=== PATIENT | male | born 1955 | race Caucasian/White ===

== ENCOUNTER 2019-05-08 03:54 | Inpatient (IN) | payer BC ==
[2019-05-08] MEDS ORDERED: HYDROmorphone 0.5 MG/0.5 ML SYRINGE IVP STA (04:58)
--- NOTE | 2019-05-08 05:04 | ED ---
General Adult HPI - General Source: patient Mode of arrival: ambulatory Limitations: no limitations <Dima Villeda - Last Filed: 05/10/19 20:52> <Tierra Gil - Last Filed: 05/14/19 13:52> - General Chief complaint: Abdominal Pain Stated complaint: Abd Pain/Shoulder Pain Time Seen by Provider: 05/08/19 04:27 - History of Present Illness Initial comments: Patient is a 64-year-old male presenting to the emergency department with a chief complaint of abdominal pain. Patient reports symptoms initially started with sore throat and a cough 2 days ago. Patient reports yesterday he developed sudden onset of generalized abdominal pain. Patient reports the pain is a 7, sharp and comes in waves. Patient does report abdominal bloating. Patient reports the pain is not related to oral intake. Patient denies any nausea or vomiting or diarrhea. Patient denies any urinary or bowel symptoms. Patient denies any fevers or chills. (Dima Villeda) - Related Data Home Medications Medication Instructions Recorded Confirmed Albuterol Inhaler [Ventolin Hfa 2 puff INHALATION RT-Q6H PRN 07/16/16 05/08/19 Inhaler] Benazepril HCl 20 mg PO DAILY 07/16/16 05/08/19 Loratadine [Claritin] 10 mg PO DAILY 07/16/16 05/08/19 Ascorbic Acid [Vitamin C] 500 mg PO DAILY 05/08/19 05/08/19 Cholecalciferol [Vitamin D3 (25 1,000 unit PO DAILY 05/08/19 05/08/19 Mcg = 1000 Iu)] Ferrous Sulfate [Feosol] 325 mg PO DAILY 05/08/19 05/08/19 Glucosamine Sulfate 500 mg PO DAILY 05/08/19 05/08/19 Multivitamins, Thera [Multivitamin 1 tab PO DAILY 05/08/19 05/08/19 (formulary)] Naproxen Sodium [Aleve] 220 mg PO DAILY PRN 05/08/19 05/08/19 Omeprazole 20 mg PO DAILY 05/08/19 05/08/19 Potassium 99 mg PO DAILY 05/08/19 05/08/19 Simvastatin [Zocor] 10 mg PO DAILY 05/08/19 05/08/19 Turmeric Root Extract [Turmeric] 500 mg PO DAILY 05/08/19 05/08/19 Previous Rx's Medication Instructions Recorded Ipratropium-Albuterol Nebulize 3 ml INHALATION RT-QID #120 07/25/16 [Duoneb 0.5 mg-3 mg/3 ml Soln] ampul.neb Levofloxacin [Levaquin] 500 mg PO DAILY #7 tab 05/13/19 traMADol HCl [Ultram] 50 mg PO Q4HR PRN 3 Days #18 tab 05/13/19 Allergies Allergy/AdvReac Type Severity Reaction Status Date / Time acetaminophen [From [place]] Allergy Rash/Hives Verified 05/08/19 07:57 Cephalosporins Allergy Rash/Hives Verified 05/08/19 07:57 hydrocodone [From [place]] Allergy Rash/Hives Verified 05/08/19 07:57 piperacillin [From Zosyn] Allergy Rash/Hives Verified 05/08/19 07:57 tazobactam [From Zosyn] Allergy Rash/Hives Verified 05/08/19 07:57 fluticasone AdvReac Wheezing Verified 05/08/19 07:57 [From Advair Diskus] salmeterol AdvReac Wheezing Verified 05/08/19 07:57 [From Advair Diskus] Review of Systems ROS Other: All systems not noted in ROS Statement are negative. <Dima Villeda - Last Filed: 05/10/19 20:52> ROS Other: All systems not noted in ROS Statement are negative. <Tierra Gil - Last Filed: 05/14/19 13:52> ROS Statement: Those systems with pertinent positive or pertinent negative responses have been documented in the HPI. Past Medical History Past Medical History: COPD, Hyperlipidemia, Hypertension History of Any Multi-Drug Resistant Organisms: None Reported Past Surgical History: No Surgical Hx Reported Additional Past Surgical History / Comment(s): orthoscopic surgery of right s [place] Past Anesthesia/Blood Transfusion Reactions: No Reported Reaction Past Psychological History: No Psychological Hx Reported Smoking Status: Former smoker Past Alcohol Use History: None Reported Past Drug Use History: None Reported - Past Family History Father History Unknown: Yes <Dima Villeda - Last Filed: 05/10/19 20:52> General Exam Limitations: no limitations General appearance: alert, in no apparent distress Head exam: Present: atraumatic, normocephalic, normal inspection Eye exam: Present: normal appearance, PERRL, EOMI Pupils: Present: normal accommodation ENT exam: Present: normal exam, normal oropharynx, mucous membranes moist, TM's normal bilaterally, normal external ear exam Neck exam: Present: normal inspection, full ROM Respiratory exam: Present: normal lung sounds bilaterally Cardiovascular Exam: Present: regular rate, normal rhythm, normal heart sounds GI/Abdominal exam: Present: soft, tenderness (Generalized abdominal tenderness. Positive Her, negative obturator sign, negative psoas, negative rebound tenderness. Positive bony point tenderness.), guarding (General), normal bowel sounds. Absent: rebound, mass, pulsatile mass, hernia Extremities exam: Present: normal inspection, full ROM, normal capillary refill Back exam: Present: normal inspection, full ROM Neurological exam: Present: alert, oriented X3 Psychiatric exam: Present: normal affect, normal mood Skin exam: Present: warm, intact, normal color <Dima Villeda - Last Filed: 05/10/19 20:52> Course Vital Signs 05/08/19 05/08/19 05/08/19 04:12 05:07 05:57 Temperature 97.5 F L 98.4 F Pulse Rate 83 99 98 Respiratory 18 18 18 Rate Blood Pressure 124/77 122/75 131/78 O2 Sat by Pulse 98 99 98 Oximetry 05/08/19 05/08/19 08:17 08:26 Temperature Pulse Rate 94 94 Respiratory Rate Blood Pressure O2 Sat by Pulse Oximetry Medical Decision Making - Lab Data Result diagrams: 05/10/19 06:47 05/10/19 06:47 <Dima Villeda - Last Filed: 05/10/19 20:52> - Lab Data Result diagrams: 05/12/19 08:37 05/12/19 08:37 <Tierra Gil - Last Filed: 05/14/19 13:52> - Medical Decision Making Patient is a 64-year-old male presenting to emergency Department with a chief c omplaint of abdominal pain. Patient had initial developed URI type symptoms over the last 2-3 days and yesterday developed abdominal pain. Patient reports the pain is not related to food intake. Patient reports he feels bloated. Patient has a history of acute abdomen followed by an exploratory laboratory which was unremarkable. Physical examination patient does have abdominal guarding. KUB is indicative of frequent urinary the abdomen. Case was discussed with the radiologist.case discussed with Dr. Gil. Admitting physician is Dr. Anguiano. CT abdomen and pelvis with contrast from multiple she points was advised according to him. Patient was given Zosyn. Patient will be admitted for further surgical evaluation. (Dima Villeda) I was available for consultation in the emergency department. The history and physical exam were done by the midlevel provider. I was consulted for this patients care. After the abd x-ray demonstrated free air, I called and discussed the case with Dr. Anguiano. He request an abd CT with oral, rectal and IV contrast. This is performed. The results are discussed with the patient and Dr. Anguiano. The patient is NPO. He was covered with antibiotics. He was then taken to the OR in stable condition for exploratory lap. (Tierra Gil) - Lab Data Lab Results 05/08/19 05/08/19 05/08/19 Range/Units 05:16 05:16 05:16 WBC 9.6 (3.8-10.6) k/uL RBC 4.79 (4.30-5.90) m/uL Hgb 14.9 (13.0-17.5) gm/dL Hct 45.1 (39.0-53.0) % MCV 94.1 (80.0-100.0) fL MCH 31.2 (25.0-35.0) pg MCHC 33.1 (31.0-37.0) g/dL RDW 13.5 (11.5-15.5) % Plt Count 117 L (150-450) k/uL Neutrophils % 91 % Lymphocytes % 2 % Monocytes % 4 % Eosinophils % 1 % Basophils % 1 % Neutrophils # 8.8 H (1.3-7.7) k/uL Lymphocytes # 0.2 L (1.0-4.8) k/uL Monocytes # 0.4 (0-1.0) k/uL Eosinophils # 0.1 (0-0.7) k/uL Basophils # 0.1 (0-0.2) k/uL Sodium 140 (137-145) mmol/L Potassium 4.8 (3.5-5.1) mmol/L Chloride 107 (98-107) mmol/L Carbon Dioxide 25 (22-30) mmol/L Anion Gap 8 mmol/L BUN 33 H (9-20) mg/dL Creatinine 1.01 (0.66-1.25) mg/dL Est GFR (CKD-EPI)AfAm >90 (>60 ml/min/1.73 sqM) Est GFR (CKD-EPI)NonAf 80 (>60 ml/min/1.73 sqM) Glucose 117 H (74-99) mg/dL Plasma Lactic Acid [place] (0.7-2.0) mmol/L Calcium 9.1 (8.4-10.2) mg/dL Total Bilirubin 0.6 (0.2-1.3) mg/dL AST 29 (17-59) U/L ALT 24 (21-72) U/L Alkaline Phosphatase 51 (38-126) U/L Total Protein 6.6 (6.3-8.2) g/dL Albumin 4.0 (3.5-5.0) g/dL Amylase 57 (30-110) U/L Lipase 67 (23-300) U/L Urine Color Yellow Urine Appearance Clear (Clear) Urine pH 6.0 (5.0-8.0) Ur Specific [place] 1.037 H (1.001-1.035) Urine Protein 1+ H (Negative) Urine Glucose (UA) Negative (Negative) Urine Ketones Trace H (Negative) Urine Blood Negative (Negative) Urine Nitrite Negative (Negative) Urine Bilirubin Negative (Negative) Urine Urobilinogen 2.0 (<2.0) mg/dL Ur Leukocyte Esterase Trace H (Negative) Urine RBC 3 (0-5) /hpf Urine WBC 10 H (0-5) /hpf Ur Squamous Epith Cells 1 (0-4) /hpf Urine Bacteria Rare H (None) /hpf Hyaline Casts 29 H (0-2) /lpf Urine Mucus Many H (None) /hpf 05/08/19 Range/Units 06:21 WBC (3.8-10.6) k/uL RBC (4.30-5.90) m/uL Hgb (13.0-17.5) gm/dL Hct (39.0-53.0) % MCV (80.0-100.0) fL MCH (25.0-35.0) pg MCHC (31.0-37.0) g/dL RDW (11.5-15.5) % Plt Count (150-450) k/uL Neutrophils % % Lymphocytes % % Monocytes % % Eosinophils % % Basophils % % Neutrophils # (1.3-7.7) k/uL Lymphocytes # (1.0-4.8) k/uL Monocytes # (0-1.0) k/uL Eosinophils # (0-0.7) k/uL Basophils # (0-0.2) k/uL Sodium (137-145) mmol/L Potassium (3.5-5.1) mmol/L Chloride (98-107) mmol/L Carbon Dioxide (22-30) mmol/L Anion Gap mmol/L BUN (9-20) mg/dL Creatinine (0.66-1.25) mg/dL Est GFR (CKD-EPI)AfAm (>60 ml/min/1.73 sqM) Est GFR (CKD-EPI)NonAf (>60 ml/min/1.73 sqM) Glucose (74-99) mg/dL Plasma Lactic Acid [place] 1.5 (0.7-2.0) mmol/L Calcium (8.4-10.2) mg/dL Total Bilirubin (0.2-1.3) mg/dL AST (17-59) U/L ALT (21-72) U/L Alkaline Phosphatase (38-126) U/L Total Protein (6.3-8.2) g/dL Albumin (3.5-5.0) g/dL Amylase (30-110) U/L Lipase (23-300) U/L Urine Color Urine Appearance (Clear) Urine pH (5.0-8.0) Ur Specific [place] (1.001-1.035) Urine Protein (Negative) Urine Glucose (UA) (Negative) Urine Ketones (Negative) Urine Blood (Negative) Urine Nitrite (Negative) Urine Bilirubin (Negative) Urine Urobilinogen (<2.0) mg/dL Ur Leukocyte Esterase (Negative) Urine RBC (0-5) /hpf Urine WBC (0-5) /hpf Ur Squamous Epith Cells (0-4) /hpf Urine Bacteria (None) /hpf Hyaline Casts (0-2) /lpf Urine Mucus (None) /hpf Disposition Is patient prescribed a controlled substance at d/c from ED?: No Time of Disposition: 20:55 <Dima Villeda - Last Filed: 05/10/19 20:52> <Tierra Gil - Last Filed: 05/14/19 13:52> Clinical Impression: Acute abdomen Disposition: ADMITTED IP TO THIS HOSP Condition: Stable
[2019-05-08 05:36] LABS: Basophils # (A) 0.1 k/uL (0-0.2); Basophils % (A) 1 %; Eosinophils # (A) 0.1 k/uL (0-0.7); Eosinophils % (A) 1 %; HCT 45.1 % (39.0-53.0); HGB 14.9 gm/dL (13.0-17.5); Lymphocytes # (A) 0.2 k/uL (1.0-4.8); Lymphocytes % (A) 2 %; MCH 31.2 pg (25.0-35.0); MCHC 33.1 g/dL (31.0-37.0); MCV 94.1 fL (80.0-100.0); Mean Platelet Volume 7.1; Monocytes # (A) 0.4 k/uL (0-1.0); Monocytes % (A) 4 %; Neutrophils # (A) 8.8 k/uL (1.3-7.7); Neutrophils % (A) 91 %; Platelet Count 117 k/uL (150-450); RBC 4.79 m/uL (4.30-5.90); RDW 13.5 % (11.5-15.5); WBC 9.6 k/uL (3.8-10.6)
--- NOTE | 2019-05-08 05:40 | XR ---
EXAM: XR Abdomen, 2 Views CLINICAL HISTORY: Abdominal pain. TECHNIQUE: Frontal view of the abdomen/pelvis with upright view of the abdomen. COMPARISON: None. FINDINGS: Intraperitoneal space: No free air. Gastrointestinal tract: Free intra-abdominal air is noted. Air-filled prominent loops of bowel are noted centrally in the abdomen extending to the left upper quadrant. Bones/joints: Unremarkable. Other findings: Etiology such as of volvulus or obstruction should be considered. IMPRESSION: Free abdominal air raising concern for ruptured viscus. Prominent loops of bowel centrally in the abdomen extending to the left upper quadrant. The possibility of obstruction or volvulus cannot be excluded. CT imaging of the abdomen and pelvis is highly advised to follow. <MYCVCSECTION> Critical Value Communications 05/08/19 05:42 Call Doctor Regarding Above results, called Dima WALLACE on 05/08 05:42 (-04:00)
[2019-05-08] MEDS ORDERED: metroNIDAZOLE-NS PMX 500 MG in SALINE 1 100ML.BAG IVPB STA (05:52)
[2019-05-08] MEDS ORDERED: LEVOFLOXACIN 750MG-D5W PMX 750 MG in DEXTROSE/WATER 1 150ML.BAG IVPB STA (05:52)
[2019-05-08] MEDS ORDERED: IOPAMIDOL CONTRAST (ORAL USE) VIAL PO PRN (05:53)
[2019-05-08] MEDS ORDERED: SODIUM CHLORIDE 0.9% 1,000 ML IV ONE (05:54)
[2019-05-08 05:55] LABS: ALT 24 U/L (21-72); AST 29 U/L (17-59); African American GFR (CKD) >90 (>60 ml/min/1.73 sqM); Alkaline Phosphatase 51 U/L (38-126); Amylase 57 U/L (30-110); Anion Gap 8 mmol/L; Blood Urea Nitrogen 33 mg/dL (9-20); Calcium 9.1 mg/dL (8.4-10.2); Carbon Dioxide 25 mmol/L (22-30); Chloride 107 mmol/L (98-107); Glucose 117 mg/dL (74-99); Potassium 4.8 mmol/L (3.5-5.1); Sodium 140 mmol/L (137-145); Total Bilirubin 0.6 mg/dL (0.2-1.3); Total Protein 6.6 g/dL (6.3-8.2)
[2019-05-08 06:01] LABS: Appearance,Urine Clear (Clear); Bacteria,Urine Rare /hpf; Bilirubin,Urine Negative (Negative); Blood,Urine Negative (Negative); Color,Urine Yellow; Glucose,Urine (UA) Negative (Negative); Hyaline Casts,Urine 29 /lpf (0-2); Ketones,Urine Trace (Negative); Leukocyte Esterase,Urine Trace (Negative); Mucus,Urine Many /hpf; Nitrite,Urine Negative (Negative); Protein,Urine 1+ (Negative); RBC,Urine 3 /hpf (0-5); Specific Gravity,Urine 1.037 (1.001-1.035); Squamous Epithelial Cell,Urine 1 /hpf (0-4); WBC,Urine 10 /hpf (0-5)
[2019-05-08] MEDS ORDERED: HYDROmorphone 1 MG/ML 1 ML SYRINGE IVP STA (06:23)
[2019-05-08] MEDS ORDERED: ALBUTEROL NEBULIZED 2.5 MG/3 ML INHALATION STA (08:03)
--- NOTE | 2019-05-08 08:17 | CT ---
EXAMINATION TYPE: CT abdomen pelvis w con DATE OF EXAM: 05/08/2019 REFERENCE: Previous study dated 07/16/2016. HISTORY: Free air in abdomen. HISTORY: Severe abdominal pain, free air in abdomen CT DLP: 511.8 mGy Automated exposure control for dose reduction was used. TECHNIQUE: Helical acquisition through the abdomen and pelvis was obtained following the oral ingesti on of with Oral Contrast and following intravenous administration of 100 mL of Isovue 300. The data w as reformatted in axial, coronal and sagittal projections. FINDINGS: Visualized portions of the lungs are clear. There is no pleural or pericardial fluid. The heart is not enlarged. Within the abdomen, there is evidence of pneumoperitoneum. There is mild dilatation of the duodenum a nd jejunum. The remainder the small bowel is normal in caliber. There is a questionable transition po int in the right lower quadrant seen best on image 42. The liver is normal in size. The gallbladder and spleen are normal. Both adrenal glands are normal. There is an 8 mm fat-containing lesion within the left kidney which is likely an angiomyolipoma. Ther e are parapelvic cysts present on the right. The pancreas is unremarkable. There is an infrarenal abdominal aortic aneurysm with eccentric thrombus which measures 4.1 cm on tod melissa's examination. Previously it measured 3.9 cm. There is no significant retroperitoneal, iliac or in guinal adenopathy. The bladder is unremarkable. There is a catheter within the rectum. There are scattered diverticula in the sigmoid region. I do no t see radiographic evidence of diverticulitis. The appendix is unremarkable. There is a small ventral hernia just below the umbilicus containing air. The mouth measures approxima tely 1.2 cm. No bony lesion is seen. IMPRESSION: 1. FREE INTRAPERITONEAL AIR. I DO NOT SEE A DEFINITE SITE OF PERFORATION. THERE IS DILATATION OF THE SMALL BOWEL TO THE LEVEL OF THE PROXIMAL JEJUNUM WITH A TRANSITION POINT PRESENT ON IMAGE 42. THERE I S NO ORAL 2. 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 3. ENLARGING INFRARENAL ABDOMINAL AORTIC ANEURYSM WITH GREATEST TRANSVERSE DIAMETER 4.1 CM TODAY. 4. MINIMAL DIVERTICULOSIS OF THE SIGMOID COLON. 5. TINY VENTRAL HERNIA CONTAINING ONLY WITH A MOUTH MEASURING 1.2 CM.
[2019-05-08] MEDS ORDERED: fentaNYL (PF) 50 MCG/ML 2 ML AMP IV PRN (08:59)
[2019-05-08] MEDS ORDERED: MIDAZOLAM 2 MG/2 ML VIAL IV PRN (08:59)
[2019-05-08] MEDS ORDERED: NALOXONE 0.4 MG/ML 1 ML VIAL IV PRN ×2 (09:05→10:50)
--- NOTE | 2019-05-08 09:08 | P.GSHP ---
History of Present Illness H&P Date: 05/08/19 Chief Complaint: Pneumoperitoneum Patient presents to the ER with pain that began around 7:00 last night. Became much more severe around 1 AM. Had an episode similar to this July 2016. X- rays when he arrived showed free air. Patient had similar episode last time. At that time the patient went for laparoscopy followed by laparotomy with no identifiable source for the pneumoperitoneum. Patient had upper GI, EGD as well following that. This time the patient's pain is midabdomen. CAT scan with oral IV and rectal contrast was utilized this morning. Case reviewed with radiology. There does appear to be some inflammatory changes with a transition point in the mid small bowel. This is thought to be the likely source of perforation. Stomach and colon appear fairly normal. Patient still having pain. Describes shortness of breath although chronically has breathing issues related to COPD and heavy previous tobacco use. No rectal bleeding or melena. Normal recent bowel habits. White blood cell count normal this morning. Lactic acid 1.5. No pneumothorax on CT chest - Review of Systems Comment: The patient denies any acute changes in vision or hearing, no dysphagia or odynophagia, no chest pain or shortness of breath, no dysuria or hematuria, no headache, no runny nose, no rectal bleeding or melena, no unexplained weight loss Past Medical History Past Medical History: COPD, Hyperlipidemia, Hypertension History of Any Multi-Drug Resistant Organisms: None Reported Past Surgical History: No Surgical Hx Reported Additional Past Surgical History / Comment(s): orthoscopic surgery of right shoulder Past Anesthesia/Blood Transfusion Reactions: No Reported Reaction Past Psychological History: No Psychological Hx Reported Smoking Status: Former smoker Past Alcohol Use History: None Reported Past Drug Use History: None Reported Medications and Allergies Home Medications Medication Instructions Recorded Confirmed Type Albuterol Inhaler [Ventolin Hfa 2 puff INHALATION RT-Q6H PRN 07/16/16 05/08/19 History Inhaler] Benazepril HCl 20 mg PO DAILY 07/16/16 05/08/19 History Loratadine [Claritin] 10 mg PO DAILY 07/16/16 05/08/19 History Ipratropium-Albuterol Nebulize 3 ml INHALATION RT-QID #120 07/25/16 05/08/19 Rx [Duoneb 0.5 mg-3 mg/3 ml Soln] ampul.neb Ascorbic Acid [Vitamin C] 500 mg PO DAILY 05/08/19 05/08/19 History Cholecalciferol [Vitamin D3 (25 1,000 unit PO DAILY 05/08/19 05/08/19 History Mcg = 1000 Iu)] Ferrous Sulfate [Feosol] 325 mg PO DAILY 05/08/19 05/08/19 History Glucosamine Sulfate 500 mg PO DAILY 05/08/19 05/08/19 History Multivitamins, Thera [Multivitamin 1 tab PO DAILY 05/08/19 05/08/19 History (formulary)] Naproxen Sodium [Aleve] 220 mg PO DAILY PRN 05/08/19 05/08/19 History Omeprazole 20 mg PO DAILY 05/08/19 05/08/19 History Potassium 99 mg PO DAILY 05/08/19 05/08/19 History Simvastatin [Zocor] 10 mg PO DAILY 05/08/19 05/08/19 History Turmeric Root Extract [Turmeric] 500 mg PO DAILY 05/08/19 05/08/19 History Allergies Allergy/AdvReac Type Severity Reaction Status Date / Time acetaminophen [From [place]] Allergy Rash/Hives Verified 05/08/19 07:57 Cephalosporins Allergy Rash/Hives Verified 05/08/19 07:57 hydrocodone [From [place]] Allergy Rash/Hives Verified 05/08/19 07:57 piperacillin [From Zosyn] Allergy Rash/Hives Verified 05/08/19 07:57 tazobactam [From Zosyn] Allergy Rash/Hives Verified 05/08/19 07:57 fluticasone AdvReac Wheezing Verified 05/08/19 07:57 [From Advair Diskus] salmeterol AdvReac Wheezing Verified 05/08/19 07:57 [From Advair Diskus] Surgical - Exam Vital Signs Temp Pulse Resp BP Pulse Ox 97.5 F L 83 18 124/77 98 05/08/19 04:12 05/08/19 04:12 05/08/19 04:12 05/08/19 04:12 05/08/19 04:12 Physical exam: General: Well-developed, well-nourished HEENT: Normocephalic, sclerae nonicteric Abdomen: Distended, diffuse tenderness, previous incisions noted, voluntary guarding with rebound Extremities: No edema Neuro: Alert and oriented Results - Labs 05/08/19 05:16 05/08/19 05:16 Abnormal Lab Results - Last 24 Hours (Table) 05/08/19 05/08/19 05/08/19 Range/Units 05:16 05:16 05:16 Plt Count 117 L (150-450) k/uL Neutrophils # 8.8 H (1.3-7.7) k/uL Lymphocytes # 0.2 L (1.0-4.8) k/uL BUN 33 H (9-20) mg/dL Glucose 117 H (74-99) mg/dL Ur Specific [place] 1.037 H (1.001-1.035) Urine Protein 1+ H (Negative) Urine Ketones Trace H (Negative) Ur Leukocyte Esterase Trace H (Negative) Urine WBC 10 H (0-5) /hpf Urine Bacteria Rare H (None) /hpf Hyaline Casts 29 H (0-2) /lpf Urine Mucus Many H (None) /hpf Diabetes panel 05/08/19 Range/Units 05:16 Sodium 140 (137-145) mmol/L Potassium 4.8 (3.5-5.1) mmol/L Chloride 107 (98-107) mmol/L Carbon Dioxide 25 (22-30) mmol/L BUN 33 H (9-20) mg/dL Creatinine 1.01 (0.66-1.25) mg/dL Glucose 117 H (74-99) mg/dL Calcium 9.1 (8.4-10.2) mg/dL AST 29 (17-59) U/L ALT 24 (21-72) U/L Alkaline Phosphatase 51 (38-126) U/L Total Protein 6.6 (6.3-8.2) g/dL Albumin 4.0 (3.5-5.0) g/dL Calcium panel 05/08/19 Range/Units 05:16 Calcium 9.1 (8.4-10.2) mg/dL Albumin 4.0 (3.5-5.0) g/dL Pituitary panel 05/08/19 Range/Units 05:16 Sodium 140 (137-145) mmol/L Potassium 4.8 (3.5-5.1) mmol/L Chloride 107 (98-107) mmol/L Carbon Dioxide 25 (22-30) mmol/L BUN 33 H (9-20) mg/dL Creatinine 1.01 (0.66-1.25) mg/dL Glucose 117 H (74-99) mg/dL Calcium 9.1 (8.4-10.2) mg/dL Adrenal panel 05/08/19 Range/Units 05:16 Sodium 140 (137-145) mmol/L Potassium 4.8 (3.5-5.1) mmol/L Chloride 107 (98-107) mmol/L Carbon Dioxide 25 (22-30) mmol/L BUN 33 H (9-20) mg/dL Creatinine 1.01 (0.66-1.25) mg/dL Glucose 117 H (74-99) mg/dL Calcium 9.1 (8.4-10.2) mg/dL Total Bilirubin 0.6 (0.2-1.3) mg/dL AST 29 (17-59) U/L ALT 24 (21-72) U/L Alkaline Phosphatase 51 (38-126) U/L Total Protein 6.6 (6.3-8.2) g/dL Albumin 4.0 (3.5-5.0) g/dL Assessment and Plan Assessment: Patient with pneumoperitoneum and associated peritonitis. CAT scan findings discussed with the patient. Options reviewed. We'll proceed with exploratory laparotomy. Possible findings of no obvious site of perforation reviewed. Washout with drain placement would be performed at that time. Risks of bleeding, infection, reperforation, abscess, leak, hernia, respiratory and cardiac complications reviewed. He understands and wishes to proceed.
[2019-05-08] MEDS ORDERED: GLYCOPYRROLATE 0.2 MG/ML 2 ML VIAL ONE (10:45)
[2019-05-08] MEDS ORDERED: PHENYLEPHRINE-0.9% NACL SYG 1 MG/10 ML SYRINGE ONE (10:45)
[2019-05-08] MEDS ORDERED: SUCCINYLCHOLINE CHLORIDE 100 MG/5 ML SYR IV ONE (10:45)
[2019-05-08] MEDS ORDERED: PROPOFOL 10 MG/ML 20 ML VIAL IV ONE (10:45)
[2019-05-08] MEDS ORDERED: NEOSTIGMINE 1 MG/ML 10 ML VIAL ONE (10:45)
[2019-05-08] MEDS ORDERED: MIDAZOLAM 2 MG/2 ML VIAL ONE (10:45)
[2019-05-08] MEDS ORDERED: METHYLENE BLUE 10 MG/ML (10 ML VIAL) ONE (10:45)
[2019-05-08] MEDS ORDERED: DEXAMETHASONE SOD PHOS (MDV) 100 MG/10 ML VIAL ONE (10:45)
[2019-05-08] MEDS ORDERED: LIDOCAINE 1% INJ 10MG/ML (20 ML MDV) ONE (10:45)
[2019-05-08] MEDS ORDERED: HEPARIN SODIUM,PORCINE 5,000 UNIT/ML 1 ML VIAL ONE (10:45)
[2019-05-08] MEDS ORDERED: fentaNYL (PF) 50 MCG/ML 2 ML AMP ONE (10:45)
[2019-05-08] MEDS ORDERED: ONDANSETRON 4 MG/2 ML VIAL ONE (10:45)
[2019-05-08] MEDS ORDERED: ROCURONIUM BROMIDE 10 MG/ML 10 ML VIAL IV ONE (10:45)
[2019-05-08] MEDS ORDERED: LACTATED RINGERS 1,000 ML IV ONE ×3 (10:50→12:52)
[2019-05-08] MEDS ORDERED: ROPIVACAINE 250 MG, fentaNYL (PF) 1,250 MCG in SODIUM CHLORIDE 0.9% 175 ML EPIDURAL PRN (11:00)
[2019-05-08] MEDS ORDERED: METHYLENE BLUE 10 MG/ML (10 ML VIAL) IRRIGATION ONE (12:35)
[2019-05-08] MEDS ORDERED: ONDANSETRON 4 MG/2 ML VIAL IVP PRN (13:12)
[2019-05-08] MEDS ORDERED: METOCLOPRAMIDE 5 MG/ML 2 ML VIAL IVP PRN (13:12)
--- NOTE | 2019-05-08 13:22 | P.OP ---
Date of Procedure: 05/08/19 Procedure(s) Performed: PREOPERATIVE DIAGNOSIS: Pneumoperitoneum, incisional hernia POSTOPERATIVE DIAGNOSIS: Perforated ulcer posterior wall stomach, small incisional hernia PROCEDURE: Exploratory laparotomy with partial gastrectomy, repair incisional hernia, incidental appendectomy SURGEON: Silvio EBL: 50 mL ANESTHESIA: General COMPLICATIONS: None OPERATIVE PROCEDURE: Patient placed in the operative table in the supine position. The patient's abdomen was prepped and draped in usual sterile fashion after general anesthesia was achieved. The previous incision was re-incised extending above and below the umbilicus. Entrance into the perineal cavity occurred. The fascia was divided using electrocautery. There were a few small defects in the midline fascia consistent with small incisional hernias. The patient had some seropurulent fluid within the abdominal cavity. This was irrigated. The abdomen was carefully evaluated. The stomach small bowel and colon were inspected numerous times without evidence of perforation. The stomach was filled with 1 L of methylene blue stained saline without any evidence of leakage. I removed the patient's appendix so that this would not be a future area of concern for this patient. The appendix was divided using a linear 75 stapler and the mesoappendix was divided using the LigaSure device. During our inspection of the stomach the lesser sac had been fully exposed and opened and the posterior wall the stomach evaluated. It wasn't until we were just about finished that I identified a very small faint bluish tinged whole along the posterior wall the stomach 1 cm from the greater curvature. This was present in the mid body of the stomach. This appeared to be the source of perforation. I decided at that point to proceed with a excision of that small portion of the greater curvature the stomach. The vasculature on the greater curvature was divided using the LigaSure device. 3 separate firings of the echelon 60 black load stapler with seen part was fired to remove this portion of the stomach. No bleeding was seen along the staple line. The nasogastric tube was placed so the tip was distal to our staple line. This was then secured in place. The abdomen was irrigated with 5 L of saline. No further purulence was seen. The fascia was exposed where there were areas of incisional hernia. The midline fascia was then reapproximated using 3 separate double-stranded #1 PDS sutures incorporating the fascial defects into the closure and repairing the incisional hernias in that manner. The skin was then closed using olga. Sterile dressings were applied. DISPOSITION: Stable to recovery room
[2019-05-08] MEDS ORDERED: ACETAMINOPHEN IV (For NPO) 1,000 MG in EMPTY BAG 1 BAG IVPB ONE (14:00)
[2019-05-08] MEDS: metroNIDAZOLE-NS PMX 500 MG in SALINE 1 100ML.BAG IVPB SCH ×2 (17:54→23:10)
[2019-05-08] MEDS: HEPARIN SODIUM,PORCINE 5,000 UNIT/ML 1 ML VIAL SQ SCH ×2 (17:54→23:10)
[2019-05-08] MEDS ORDERED: HEPARIN SODIUM,PORCINE 5,000 UNIT/ML 1 ML VIAL SQ SCH (21:00)
[2019-05-09] MEDS ORDERED: IPRATROPIUM-ALBUTEROL 3 ML NEB INHALATION PRN ×2 (00:33→00:56)
--- NOTE | 2019-05-09 06:21 | P.PN ---
Progress Note - Text Progress Note Date: 05/09/19 POD 1, catheter day 2. thoracic epidural in place for Ex lap with dr. Anguiano. Catheter in place, slight dry blood at site, no bleeding. No lower ext weakness. Catheter in place per surgery team. Pain well controlled. NO PRN meds given overnight. BP stable. Continue catheter at current settings of 5cc. Titrate by 1-2 cc as needed.
[2019-05-09] MEDS: metroNIDAZOLE-NS PMX 500 MG in SALINE 1 100ML.BAG IVPB SCH ×3 (07:49→23:10)
[2019-05-09] MEDS: LEVOFLOXACIN 500MG-D5W PMX 500 MG in DEXTROSE/WATER 1 100ML.BAG IVPB SCH (07:50)
[2019-05-09] MEDS: PANTOPRAZOLE 40 MG/10 ML VIAL IV SCH (07:50)
[2019-05-09] MEDS: HEPARIN SODIUM,PORCINE 5,000 UNIT/ML 1 ML VIAL SQ SCH ×3 (07:50→23:10)
[2019-05-09] MEDS: IPRATROPIUM-ALBUTEROL 3 ML NEB INHALATION SCH ×4 (08:24→20:39)
[2019-05-09 08:30] LABS: ALT 16 U/L (21-72); AST 33 U/L (17-59); African American GFR (CKD) >90 (>60 ml/min/1.73 sqM); Albumin 2.7 g/dL (3.5-5.0); Alkaline Phosphatase 46 U/L (38-126); Anion Gap 7 mmol/L; Blood Urea Nitrogen 27 mg/dL (9-20); Calcium 7.7 mg/dL (8.4-10.2); Carbon Dioxide 21 mmol/L (22-30); Chloride 108 mmol/L (98-107); Glucose 102 mg/dL (74-99); Sodium 136 mmol/L (137-145); Total Bilirubin 0.6 mg/dL (0.2-1.3)
[2019-05-09 08:34] LABS: Potassium 4.7 mmol/L (3.5-5.1)
[2019-05-09 09:06] LABS: Basophils % (A) 1 %; Eosinophils % (A) 0 %; HCT 38.8 % (39.0-53.0); HGB 12.8 gm/dL (13.0-17.5); Lymphocytes # (A) 0.5 k/uL (1.0-4.8); Lymphocytes % (A) 7 %; MCV 97.1 fL (80.0-100.0); Mean Platelet Volume 7.2; Monocytes # (A) 0.4 k/uL (0-1.0); Monocytes % (A) 6 %; Neutrophils # (A) 5.5 k/uL (1.3-7.7); Neutrophils % (A) 84 %; RDW 13.8 % (11.5-15.5); WBC 6.5 k/uL (3.8-10.6)
[2019-05-09 11:34] LABS: Platelet Count 91 k/uL (150-450); Poikilocytosis (M) Present
--- NOTE | 2019-05-09 11:34 | P.PN ---
<Liza Abdullahi Franc - Last Filed: 05/09/19 11:27> Subjective Progress Note Date: 05/09/19 CHIEF COMPLAINT: abdominal pain HISTORY OF PRESENT ILLNESS: 64-year-old male who is status post exploratory laparotomy with partial gastrectomy, repair of incisional hernia, and incidental appendectomy secondary to perforated ulcer of posterior wall stomach. POD #1. Patient examined at the bedside this morning. His pain is tolerable. Epidural infusing at 5cc/hr. NG to LIS with bilious drainage. Approx 100cc in the cannister since this morning. He denies passing flatus. He has not been out of bed yet this morning. WBC 6.5. Hemoglobin 12.8. PHYSICAL EXAM: VITAL SIGNS: Reviewed. GENERAL: Well-developed in no acute distress. HEENT: No sclera icterus. Extraocular movements grossly intact. Moist buccal mucosa. Head is atraumatic, normocephalic. ABDOMEN: Soft. Nondistended. Appropriate surgical tenderness. Dressing to abdomen with small shadowing. NEUROLOGIC: Alert and oriented. Cranial nerves II through XII grossly intact. ASSESSMENT: 1. Abdominal pain 2. Status post exploratory laparotomy with partial gastrectomy, repair of in cisional hernia, and incidental appendectomy secondary to perforated ulcer of posterior wall stomach PLAN: 1. Continue NG to LIS 2. Await bowel function 3. Continue epidural and gabriel. Will DC POD #3 (Thursday) 4. Activity as tolerated. Patient encouraged to be OOB and ambulatory today. Up in the chair. 5. Obtain incentive spirometer for patient. Spoke with RN. Explained importance of using IS with patient this morning, especially with his pulmonary history. Nurse practitioner note has been reviewed by physician. Signing provider agrees with the documented findings, assessment, and plan of care. Objective - Vital Signs Vital signs: Vital Signs Temp 97.6 F 05/09/19 07:00 Pulse 88 05/09/19 08:24 Resp 18 05/09/19 07:00 BP 105/58 05/09/19 07:00 Pulse Ox 94 L 05/09/19 07:00 Intake & Output 05/08/19 05/09/19 05/09/19 18:59 06:59 18:59 Intake Total 1600 1100 Output Total 580 900 Balance 1020 200 Intake: IV 1600 Intake, IV Titration 1100 Amount Lactated Ringers 1,000 ml 900 @ 0 mls/hr IV .[facility] Rx#:[id number] Sodium Chloride 0.9% 1, 200 000 ml @ 999 mls/hr IV . Q1H[facility]M ONE Rx#:[id number] Output: Urine 530 900 Uretheral (Gabriel) 900 Estimated Blood Loss 50 Other: Voiding Method Indwelling Catheter Indwelling Catheter Indwelling Catheter - Labs CBC & Chem 7: 05/09/19 07:28 05/09/19 07:28 Labs: Abnormal Lab Results - Last 24 Hours (Table) 05/09/19 05/09/19 Range/Units 07:28 07:28 RBC 4.00 L (4.30-5.90) m/uL Hgb 12.8 L (13.0-17.5) gm/dL Hct 38.8 L (39.0-53.0) % Sodium 136 L (137-145) mmol/L Chloride 108 H (98-107) mmol/L Carbon Dioxide 21 L (22-30) mmol/L BUN 27 H (9-20) mg/dL Glucose 102 H (74-99) mg/dL Calcium 7.7 L (8.4-10.2) mg/dL ALT 16 L (21-72) U/L Total Protein 5.0 L (6.3-8.2) g/dL Albumin 2.7 L (3.5-5.0) g/dL Microbiology - Last 24 Hours (Table) 05/08/19 06:21 Blood Culture - Preliminary Blood No Growth after 24 hours <Rico Anguiano - Last Filed: 05/09/19 15:58> Subjective As above. Patient doing better today. Pain improved from preop. Labs noted. Patient's epidural did fall out. We'll add Toradol for pain control. Continue nothing by mouth with nasogastric tube to suction. Ice chips sparingly is okay. Continue broad-spectrum antibiotics. Objective - Vital Signs Vital signs: Vital Signs Temp 98.2 F 05/09/19 13:50 Pulse 96 05/09/19 13:50 Resp 15 05/09/19 13:50 BP 121/58 05/09/19 13:50 Pulse Ox 89 L 05/09/19 13:50 Intake & Output 05/08/19 05/09/19 05/09/19 18:59 06:59 18:59 Intake Total 1600 1100 Output Total 580 900 350 Balance 1020 200 -350 Intake: IV 1600 Intake, IV Titration 1100 Amount Lactated Ringers 1,000 ml 900 @ 0 mls/hr IV .[facility] Rx#:[id number] Sodium Chloride 0.9% 1, 200 000 ml @ 999 mls/hr IV . Q1H1M ONE Rx#:[id number] Output: Urine 530 900 350 Uretheral (Gabriel) 900 Estimated Blood Loss 50 Other: Voiding Method Indwelling Catheter Indwelling Catheter Indwelling Catheter - Labs CBC & Chem 7: 05/09/19 07:28 05/09/19 07:28 Labs: Abnormal Lab Results - Last 24 Hours (Table) 05/09/19 05/09/19 Range/Units 07:28 07:28 RBC 4.00 L (4.30-5.90) m/uL Hgb 12.8 L (13.0-17.5) gm/dL Hct 38.8 L (39.0-53.0) % Plt Count 91 L (150-450) k/uL Lymphocytes # 0.5 L (1.0-4.8) k/uL Sodium 136 L (137-145) mmol/L Chloride 108 H (98-107) mmol/L Carbon Dioxide 21 L (22-30) mmol/L BUN 27 H (9-20) mg/dL Glucose 102 H (74-99) mg/dL Calcium 7.7 L (8.4-10.2) mg/dL ALT 16 L (21-72) U/L Total Protein 5.0 L (6.3-8.2) g/dL Albumin 2.7 L (3.5-5.0) g/dL Microbiology - Last 24 Hours (Table) 05/08/19 06:21 Blood Culture - Preliminary Blood No Growth after 24 hours
[2019-05-09] MEDS: HYDROmorphone 1 MG/ML 1 ML SYRINGE IVP PRN ×3 (12:17→19:06)
--- NOTE | 2019-05-09 15:59 | P.CNPUL ---
History of Present Illness Consult date: 05/09/19 Requesting physician: Rico Anguiano Reason for consult: dyspnea, COPD Chief complaint: Wheezing, shortness of breath History of present illness: This is a 64-year-old white male patient of Dr. Louise, with past medical history of COPD, hypertension, hyperlipidemia, former smoker who came into the hospital on 05/08/2019 with severe abdominal pain, abdominal x-ray showed free air. CT of abdomen and pelvis comfort free intraperitoneal air, but could not identify a definite perforation site. Patient was taken to surgery by Dr. Anguiano for exploratory laparotomy with partial gastrectomy, repair of incisional hernia and incidental appendectomy. In the postoperative period apparently patient developed some wheezing and shortness of breath, patient is normally on nebulized treatments at home, and he uses Ventolin inhaler at work. No other maintenance inhalers. Now normal on any oxygen. We're consulted for acute exacerbation of COPD Review of Systems All systems: negative Constitutional: Denies chills, Denies fever Eyes: denies blurred vision, denies pain Ears, nose, mouth and throat: Denies headache, Denies sore throat Cardiovascular: Denies chest pain, Denies shortness of breath Respiratory: Reports cough, Reports dyspnea, Reports wheezing Gastrointestinal: Reports abdominal pain, Denies diarrhea, Denies nausea, Denies vomiting Musculoskeletal: Denies myalgias Integumentary: Denies pruritus, Denies rash Neurological: Denies numbness, Denies weakness Psychiatric: Denies anxiety, Denies depression Endocrine: Denies fatigue, Denies weight change Past Medical History Past Medical History: COPD, Hyperlipidemia, Hypertension History of Any Multi-Drug Resistant Organisms: None Reported Past Surgical History: No Surgical Hx Reported Additional Past Surgical History / Comment(s): orthoscopic surgery of right shoulder, previous ex-lap Past Anesthesia/Blood Transfusion Reactions: No Reported Reaction Past Psychological History: No Psychological Hx Reported Smoking Status: Former smoker Past Alcohol Use History: None Reported Past Drug Use History: None Reported - Past Family History Father History Unknown: Yes Medications and Allergies Home Medications Medication Instructions Recorded Confirmed Type Albuterol Inhaler [Ventolin Hfa 2 puff INHALATION RT-Q6H PRN 07/16/16 05/08/19 History Inhaler] Benazepril HCl 20 mg PO DAILY 07/16/16 05/08/19 History Loratadine [Claritin] 10 mg PO DAILY 07/16/16 05/08/19 History Ipratropium-Albuterol Nebulize 3 ml INHALATION RT-QID #120 07/25/16 05/08/19 Rx [Duoneb 0.5 mg-3 mg/3 ml Soln] ampul.neb Ascorbic Acid [Vitamin C] 500 mg PO DAILY 05/08/19 05/08/19 History Cholecalciferol [Vitamin D3 (25 1,000 unit PO DAILY 05/08/19 05/08/19 History Mcg = 1000 Iu)] Ferrous Sulfate [Feosol] 325 mg PO DAILY 05/08/19 05/08/19 History Glucosamine Sulfate 500 mg PO DAILY 05/08/19 05/08/19 History Multivitamins, Thera [Multivitamin 1 tab PO DAILY 05/08/19 05/08/19 History (formulary)] Naproxen Sodium [Aleve] 220 mg PO DAILY PRN 05/08/19 05/08/19 History Omeprazole 20 mg PO DAILY 05/08/19 05/08/19 History Potassium 99 mg PO DAILY 05/08/19 05/08/19 History Simvastatin [Zocor] 10 mg PO DAILY 05/08/19 05/08/19 History Turmeric Root Extract [Turmeric] 500 mg PO DAILY 05/08/19 05/08/19 History Allergies Allergy/AdvReac Type Severity Reaction Status Date / Time acetaminophen [From [place]] Allergy Rash/Hives Verified 05/08/19 07:57 Cephalosporins Allergy Rash/Hives Verified 05/08/19 07:57 hydrocodone [From [place]] Allergy Rash/Hives Verified 05/08/19 07:57 piperacillin [From Zosyn] Allergy Rash/Hives Verified 05/08/19 07:57 tazobactam [From Zosyn] Allergy Rash/Hives Verified 05/08/19 07:57 fluticasone AdvReac Wheezing Verified 05/08/19 07:57 [From Advair Diskus] salmeterol AdvReac Wheezing Verified 05/08/19 07:57 [From Advair Diskus] Physical Exam Vitals: Vital Signs Temp Pulse Pulse Pulse Resp BP Pulse Ox 05/09/19 13:50 98.2 F 96 15 121/58 89 L 09/23/19 12:09 83 05/09/19 11:56 80 05/09/19 08:35 80 05/09/19 08:24 88 05/09/19 07:00 97.6 F 74 18 105/58 94 L 05/09/19 01:57 98.2 F 79 18 104/53 93 L 05/09/19 01:03 84 05/09/19 00:57 78 05/08/19 19:55 98.7 F 78 16 107/64 95 05/08/19 16:10 79 20 114/71 97 05/08/19 15:55 78 18 102/66 98 Intake and Output 05/09/19 05/09/19 05/09/19 06:59 14:59 22:59 Intake Total 900 Output Total 900 350 Balance 0 -350 Intake: Intake, IV Titration 900 Amount Lactated Ringers 1,000 ml 900 @ 0 mls/hr IV .[facility] Rx#:[id number] Output: Urine 900 350 Uretheral ([place]) 900 Other: Voiding Method Indwelling Catheter Indwelling Catheter Indwelling Catheter GENERAL EXAM: Alert, pleasant, 64-year-old of white male, in mild to moderate amount of discomfort from his abdominal incision, but no acute distress HEAD: Normocephalic/atraumatic. EYES: Normal reaction of pupils, equal size. Conjunctiva pink, sclera white. NOSE: Clear with pink turbinates. THROAT: No erythema or exudates. NECK: No masses, no JVD, no thyroid enlargement, no adenopathy. CHEST: No chest wall deformity. Symmetrical expansion. LUNGS: Equal air entry with expiratory wheezing, scattered CVS: Regular rate and rhythm, normal S1 and S2, no gallops, no murmurs, no rubs ABDOMEN: Soft, tender. Mid abdominal incision is covered with surgical dressing, clean dry and intact. No hepatosplenomegaly, normal bowel sounds, no guarding or rigidity. EXTREMITIES: No clubbing, no edema, no cyanosis, 2+ pulses and upper and lower extremities. MUSCULOSKELETAL: Muscle strength and tone normal. SPINE: No scoliosis or deformity SKIN: No rashes CENTRAL NERVOUS SYSTEM: Alert and oriented -3. No focal deficits, tone is normal in all 4 extremities. PSYCHIATRIC: Alert and oriented -3. Appropriate affect. Intact judgment and insight. Results - Laboratory Findings CBC and BMP: 05/09/19 07:28 05/09/19 07:28 Abnormal lab findings: Abnormal Labs 05/08/19 05/08/19 05/08/19 05:16 05:16 05:16 RBC Hgb Hct Plt Count 117 L Neutrophils # 8.8 H Lymphocytes # 0.2 L Sodium Chloride Carbon Dioxide BUN 33 H Glucose 117 H Calcium ALT Total Protein Albumin Ur Specific [place] 1.037 H Urine Protein 1+ H Urine Ketones Trace H Ur Leukocyte Esterase Trace H Urine WBC 10 H Urine Bacteria Rare H Hyaline Casts 29 H Urine Mucus Many H 05/09/19 05/09/19 07:28 07:28 RBC 4.00 L Hgb 12.8 L Hct 38.8 L Plt Count 91 L Neutrophils # Lymphocytes # 0.5 L Sodium 136 L Chloride 108 H Carbon Dioxide 21 L BUN 27 H Glucose 102 H Calcium 7.7 L ALT 16 L Total Protein 5.0 L Albumin 2.7 L Ur Specific [place] Urine Protein Urine Ketones Ur Leukocyte Esterase Urine WBC Urine Bacteria Hyaline Casts Urine Mucus - Diagnostic Findings Additional studies: Abdominal x-ray, and CT of abdomen and pelvis reviewed Assessment and Plan Plan: Assessment: #1. Mild exacerbation of chronic obstructive pulmonary disease, the severity of which is unknown, the patient is not oxygen dependent at baseline #2. Perforated ulcer, small incisional hernia, status post exploratory laparotomy, and partial gastrectomy, repair of incisional hernia and incidental appendectomy, postoperative day 1 #3. Former smoker #4. Previous history of pneumoperitoneum with no source of perforation #5. Hypertension #6. Hyperlipidemia Plan: Continue with nebulized bronchodilators, would continue with current an tibiotics, provide incentive spirometer, deep breathing and coughing, pain control, we'll order a chest x-ray for in the morning, we'll continue to follow I performed a history & physical examination of the patient and discussed their management with my nurse practitioner, Rubia Power. I reviewed the nurse practitioner's note and agree with the documented findings and plan of care. Lung sounds are positive for scattered wheezing. The findings and the impression was discussed with the patient. I attest to the documentation by the nurse practitioner. Time with Patient: Greater than 30
[2019-05-09] MEDS: KETOROLAC 30 MG/ML 1 ML VIAL IVP SCH ×2 (16:45→23:10)
[2019-05-10] MEDS: KETOROLAC 30 MG/ML 1 ML VIAL IVP SCH ×4 (05:12→23:25)
[2019-05-10] MEDS: IPRATROPIUM-ALBUTEROL 3 ML NEB INHALATION SCH ×4 (07:14→19:30)
--- NOTE | 2019-05-10 07:16 | P.PN ---
Progress Note - Text 05/10 703am 64-year-old male status post exploratory lap by Dr. Anguiano. Patient had an epidural catheter for postop pain control which was disconnected and then discontinued. Patient was seen this morning, not too happy with his pain control. Plan to treat the patient for pain control with IV medication as per the surgeon.
[2019-05-10 07:29] LABS: Basophils % (A) 0 %; Eosinophils % (A) 1 %; HCT 39.1 % (39.0-53.0); HGB 12.9 gm/dL (13.0-17.5); Lymphocytes # (A) 0.5 k/uL (1.0-4.8); Lymphocytes % (A) 9 %; MCH 30.9 pg (25.0-35.0); MCHC 33.1 g/dL (31.0-37.0); MCV 93.5 fL (80.0-100.0); Mean Platelet Volume 7.3; Monocytes # (A) 0.4 k/uL (0-1.0); Monocytes % (A) 7 %; Neutrophils # (A) 4.8 k/uL (1.3-7.7); Neutrophils % (A) 82 %; Platelet Count 106 k/uL (150-450); RBC 4.18 m/uL (4.30-5.90); RDW 13.7 % (11.5-15.5); WBC 5.8 k/uL (3.8-10.6)
[2019-05-10 07:45] LABS: African American GFR (CKD) >90 (>60 ml/min/1.73 sqM); Anion Gap 7 mmol/L; Blood Urea Nitrogen 31 mg/dL (9-20); Calcium 8.1 mg/dL (8.4-10.2); Carbon Dioxide 24 mmol/L (22-30); Chloride 107 mmol/L (98-107); Glucose 79 mg/dL (74-99); Potassium 4.3 mmol/L (3.5-5.1); Sodium 138 mmol/L (137-145)
[2019-05-10] MEDS: metroNIDAZOLE-NS PMX 500 MG in SALINE 1 100ML.BAG IVPB SCH ×3 (07:58→23:31)
[2019-05-10] MEDS: PANTOPRAZOLE 40 MG/10 ML VIAL IV SCH (07:59)
[2019-05-10] MEDS: LEVOFLOXACIN 500MG-D5W PMX 500 MG in DEXTROSE/WATER 1 100ML.BAG IVPB SCH (07:59)
[2019-05-10] MEDS: HEPARIN SODIUM,PORCINE 5,000 UNIT/ML 1 ML VIAL SQ SCH ×3 (07:59→23:28)
[2019-05-10] MEDS: LISINOPRIL 20 MG TAB PO SCH (07:59)
[2019-05-10] MEDS: HYDROmorphone 1 MG/ML 1 ML SYRINGE IVP PRN ×2 (10:46→16:43)
--- NOTE | 2019-05-10 12:01 | XR ---
EXAMINATION TYPE: XR chest 2V DATE OF EXAM: 05/10/2019 COMPARISON: 05/08/2019 HISTORY: 64 year-old male shortness of breath TECHNIQUE: PA and lateral views FINDINGS: Heart normal size. NG tube courses below the diaphragm. Trace effusions, right greater than left with mild patchy bibasilar densities. Trace free air noted below the right and the diaphragm, decreased s ignificantly from 05/08/2019. Some skin olga are now seen along the upper abdomen. IMPRESSION: 1. Small effusions, right greater than left with adjacent mild patchy bibasilar atelectasis/infiltrat es. 2. Residual trace free air below the right hemidiaphragm.
--- NOTE | 2019-05-10 12:08 | P.PN ---
Subjective Progress Note Date: 05/10/19 Principal diagnosis: Wheezing, shortness of breath This is a 64-year-old white male patient of Dr. Louise, with past medical history of COPD, hypertension, hyperlipidemia, former smoker who came into the hospital on 05/08/2019 with severe abdominal pain, abdominal x-ray showed free air. CT of abdomen and pelvis comfort free intraperitoneal air, but could not identify a definite perforation site. Patient was taken to surgery by Dr. Anguiano for exploratory laparotomy with partial gastrectomy, repair of incisional hernia and incidental appendectomy. In the postoperative period apparently patient developed some wheezing and shortness of breath, patient is normally on nebuli zed treatments at home, and he uses Ventolin inhaler at work. No other maintenance inhalers. Now normal on any oxygen. We're consulted for acute exacerbation of COPD On 05/10/2019 patient seen in follow-up on medical surgical floor. She is awake and alert, in no acute distress, he states his breathing easier, still has some end expiratory wheezes, he is on 2 L of oxygen with a pulse ox of 92%, his afebrile. No significant cough or congestion, he is receiving nebulized treatments, and antibiotics, his pain is reasonably controlled, his epidural has been discontinued, working on his incentive spirometer, today chest x-ray has been reviewed showing small pleural effusions right greater than the left with adjacent mild patchy bibasilar atelectasis, and residual trace free air below the right hemidiaphragm. Today's lab work has been reviewed, blood cell was 5.8, hemoglobin is 12.9, electrolytes are within normal limits, BUN is 31 creatinine 0.91. No acute events overnight, patient hasn't passed any gas yet. Objective - Vital Signs Vital signs: Vital Signs Temp 98.5 F 05/10/19 08:04 Pulse 84 05/10/19 11:24 Resp 18 05/10/19 01:46 BP 157/74 05/10/19 08:04 Pulse Ox 92 L 05/10/19 08:04 Intake & Output 05/09/19 05/10/19 05/10/19 18:59 06:59 18:59 Intake Total 1200 Output Total 650 75 Balance -650 1125 Intake: IV 300 0.9 Sodium Chloride @ 150 300 Intake, IV Titration 900 Amount Lactated Ringers 1,000 ml 900 @ 0 mls/hr IV .[email or web address] Rx#:[id number] Output: Drainage 300 75 NG Tube 300 75 Urine 350 Other: Voiding Method Indwelling Catheter Indwelling Catheter - Exam GENERAL EXAM: Alert, pleasant, 64-year-old of white male, in no acute distress. Currently on 2 L of oxygen with a pulse ox of 92% HEAD: Normocephalic/atraumatic. EYES: Normal reaction of pupils, equal size. Conjunctiva pink, sclera white. NOSE: Clear with pink turbinates. THROAT: No erythema or exudates. NECK: No masses, no JVD, no thyroid enlargement, no adenopathy. CHEST: No chest wall deformity. Symmetrical expansion. LUNGS: Equal air entry with a few end expiratory wheezing, scattered CVS: Regular rate and rhythm, normal S1 and S2, no gallops, no murmurs, no rubs ABDOMEN: Soft, tender. Mid abdominal incision is covered with surgical dressing, clean dry and intact. No hepatosplenomegaly, normal bowel sounds, no guarding or rigidity. EXTREMITIES: No clubbing, no edema, no cyanosis, 2+ pulses and upper and lower extremities. MUSCULOSKELETAL: Muscle strength and tone normal. SPINE: No scoliosis or deformity SKIN: No rashes CENTRAL NERVOUS SYSTEM: Alert and oriented -3. No focal deficits, tone is normal in all 4 extremities. PSYCHIATRIC: Alert and oriented -3. Appropriate affect. Intact judgment and insight. - Labs CBC & Chem 7: 05/10/19 06:47 05/10/19 06:47 Labs: Abnormal Lab Results - Last 24 Hours (Table) 05/10/19 05/10/19 Range/Units 06:47 06:47 RBC 4.18 L (4.30-5.90) m/uL Hgb 12.9 L (13.0-17.5) gm/dL Plt Count 106 L (150-450) k/uL Lymphocytes # 0.5 L (1.0-4.8) k/uL BUN 31 H (9-20) mg/dL Calcium 8.1 L (8.4-10.2) mg/dL Microbiology - Last 24 Hours (Table) 05/08/19 06:21 Blood Culture - Preliminary Blood No Growth after 48 hours Assessment and Plan Plan: Assessment: #1. Mild exacerbation of chronic obstructive pulmonary disease, the severity of which is unknown, the patient is not oxygen dependent at baseline #2. Perforated ulcer, small incisional hernia, status post exploratory laparotomy, and partial gastrectomy, repair of incisional hernia and incidental appendectomy, postoperative day 2 #3. Former smoker #4. Previous history of pneumoperitoneum with no source of perforation #5. Hypertension #6. Hyperlipidemia Plan: Today's chest x-ray has been reviewed, showing small pleural effusions, and adjacent atelectasis, continue encouraging deep breathing and coughing, maintain pain control, encourage ambulation. No fever or chills, vital signs are stable, continue with nebulized bronchodilators and antibiotics, will follow I performed a history & physical examination of the patient and discussed their management with my nurse practitioner, Rubia Power. I reviewed the nurse practitioner's note and agree with the documented findings and plan of care. Lung sounds are positive for scattered wheezing. The findings and the impression was discussed with the patient. I attest to the documentation by the nurse practitioner. Time with Patient: Less than 30
--- NOTE | 2019-05-10 14:06 | P.PN ---
<AbdullahiLiza Franc - Last Filed: 05/10/19 14:01> Subjective Progress Note Date: 05/10/19 CHIEF COMPLAINT: abdominal pain HISTORY OF PRESENT ILLNESS: 64-year-old male who is status post exploratory laparotomy with partial gastrectomy, repair of incisional hernia, and incidental appendectomy secondary to perforated ulcer of posterior wall stomach. POD #2. Patient examined at the bedside this morning. He reports his is tolerable at this time. He has been receiving Toradol. He is afraid to cough because of increased pain with coughing. He is using a pillow to splint. Use of incentive spirometry was encouraged. He is pulling 500-750cc on IS. Explained to patient that it is okay to take Dilaudid if needed to cough adequately and perform IS to prevent respiratory complications. He reports belching. Not passing flatus. Tolerating ice chips. NG to LIS with 100cc of bilious drainage. WBC 5.8. Hemoglobin 12.9 PHYSICAL EXAM: VITAL SIGNS: Reviewed. GENERAL: Well-developed in no acute distress. HEENT: NG to LIS. No sclera icterus. Extraocular movements grossly intact. Moist buccal mucosa. Head is atraumatic, normocephalic. ABDOMEN: Soft. Nondistended. Appropriate surgical tenderness. Dressing to abdomen with small shadowing. NEUROLOGIC: Alert and oriented. Cranial nerves II through XII grossly intact. ASSESSMENT: 1. Abdominal pain 2. Status post exploratory laparotomy with partial gastrectomy, repair of incisional hernia, and incidental appendectomy secondary to perforated ulcer of posterior wall stomach PLAN: 1. Continue NG to LIS. Continue NPO except ice chips. 2. Await bowel function 3. Pain control. Continue Toradol. Use of Dilaudid PRN encouraged to help control pain so patient can better effectively cough, deep breath, and use IS. 4. Patient using pillow to splint incision while coughing. Will order abdominal binder for additional abdominal support. 5. Activity as tolerated 6. Continue encouragement of incentive spirometer. Nurse practitioner note has been reviewed by physician. Signing provider agrees with the documented findings, assessment, and plan of care. Objective - Vital Signs Vital signs: Vital Signs Temp 98.5 F 05/10/19 08:04 Pulse 84 05/10/19 11:24 Resp 18 05/10/19 01:46 BP 157/74 05/10/19 08:04 Pulse Ox 92 L 05/10/19 08:04 Intake & Output 05/09/19 05/10/19 05/10/19 18:59 06:59 18:59 Intake Total 1200 Output Total 650 75 Balance -650 1125 Intake: IV 300 0.9 Sodium Chloride @ 150 300 Intake, IV Titration 900 Amount Lactated Ringers 1,000 ml 900 @ 0 mls/hr IV [email or web address] Rx#:[id number] Output: Drainage 300 75 NG Tube 300 75 Urine 350 Other: Voiding Method Indwelling Catheter Indwelling Catheter - Labs CBC & Chem 7: 05/10/19 06:47 05/10/19 06:47 Labs: Abnormal Lab Results - Last 24 Hours (Table) 05/10/19 05/10/19 Range/Units 06:47 06:47 RBC 4.18 L (4.30-5.90) m/uL Hgb 12.9 L (13.0-17.5) gm/dL Plt Count 106 L (150-450) k/uL Lymphocytes # 0.5 L (1.0-4.8) k/uL BUN 31 H (9-20) mg/dL Calcium 8.1 L (8.4-10.2) mg/dL Microbiology - Last 24 Hours (Table) 05/08/19 06:21 Blood Culture - Preliminary Blood No Growth after 48 hours <Rico Anguiano - Last Filed: 05/10/19 17:12> Subjective As above. Patient doing well. No bowel function. Keep nasogastric tube for now. Continue analgesics. Ambulate. Objective - Vital Signs Vital signs: Vital Signs Temp 97.9 F 05/10/19 14:35 Pulse 85 05/10/19 16:08 Resp 15 05/10/19 14:35 BP 124/70 05/10/19 14:35 Pulse Ox 95 05/10/19 14:35 Intake & Output 05/09/19 05/10/19 05/10/19 18:59 06:59 18:59 Intake Total 1200 Output Total 650 75 100 Balance -650 1125 -100 Intake: IV 300 0.9 Sodium Chloride @ 150 300 Intake, IV Titration 900 Amount Lactated Ringers 1,000 ml 900 @ 0 mls/hr IV [email or web address] Rx#:[id number] Output: Drainage 300 75 100 NG Tube 300 75 100 Urine 350 Other: Voiding Method Indwelling Catheter Indwelling Catheter # Voids 2 - Labs CBC & Chem 7: 05/10/19 06:47 05/10/19 06:47 Labs: Abnormal Lab Results - Last 24 Hours (Table) 05/10/19 05/10/19 Range/Units 06:47 06:47 RBC 4.18 L (4.30-5.90) m/uL Hgb 12.9 L (13.0-17.5) gm/dL Plt Count 106 L (150-450) k/uL Lymphocytes # 0.5 L (1.0-4.8) k/uL BUN 31 H (9-20) mg/dL Calcium 8.1 L (8.4-10.2) mg/dL Microbiology - Last 24 Hours (Table) 05/08/19 06:21 Blood Culture - Preliminary Blood No Growth after 48 hours
--- NOTE | 2019-05-10 18:12 | PN ---
PROGRESS NOTE CHIEF COMPLAINT: Status post perforated ulcer. HISTORY OF PRESENT ILLNESS: This gentleman is having a little trouble with shortness of breath today. He has had no chest pain, fever, chills, cough, hemoptysis, etc. PHYSICAL EXAMINATION: Color is good. Breath sounds are diminished, but this due to his emphysema. Cardiac exam is normal. Bowel sounds are heard. IMPRESSION: 1. Status post laparotomy and over-sewing of gastric ulcer. 2. Chronic obstructive pulmonary disease. 3. Hypertension. PLAN: Continue to follow with Surgery and watch for any further difficulty that might be related to or causing shortness of breath. MMODL / IJN: [id number] /
[2019-05-10] MEDS: BUDESONIDE 0.5 MG/2 ML NEBU INHALATION SCH (19:30)
[2019-05-11] MEDS: KETOROLAC 30 MG/ML 1 ML VIAL IVP SCH ×2 (06:04→11:32)
[2019-05-11] MEDS: IPRATROPIUM-ALBUTEROL 3 ML NEB INHALATION SCH ×4 (08:08→19:55)
[2019-05-11] MEDS: BUDESONIDE 0.5 MG/2 ML NEBU INHALATION SCH ×2 (08:08→19:55)
[2019-05-11] MEDS: HEPARIN SODIUM,PORCINE 5,000 UNIT/ML 1 ML VIAL SQ SCH ×3 (09:28→23:27)
[2019-05-11] MEDS: PANTOPRAZOLE 40 MG/10 ML VIAL IV SCH (09:28)
[2019-05-11] MEDS: metroNIDAZOLE-NS PMX 500 MG in SALINE 1 100ML.BAG IVPB SCH ×3 (09:29→23:26)
[2019-05-11] MEDS: LISINOPRIL 20 MG TAB PO SCH (09:29)
--- NOTE | 2019-05-11 10:22 | P.PN ---
<AbdullahiLiza Franc - Last Filed: 05/11/19 10:18> Subjective Progress Note Date: 05/11/19 CHIEF COMPLAINT: abdominal pain HISTORY OF PRESENT ILLNESS: 64-year-old male who is status post exploratory laparotomy with partial gastrectomy, repair of incisional hernia, and incidental appendectomy secondary to perforated ulcer of posterior wall stomach. POD #3. Patient examined at the bedside this morning. Patient reports mild abdominal pain this morning. Abdominal binder placed yesterday which he reports has helped. NG to LIS with minimal bilious output. He is passing flatus. No BM. He sat in the chair for most of the day yesterday and is wanting to get up again today to the chair. He reports using his incentive spirometer. PHYSICAL EXAM: VITAL SIGNS: Reviewed. GENERAL: Well-developed in no acute distress. HEENT: NG to LIS. No sclera icterus. Extraocular movements grossly intact. Moist buccal mucosa. Head is atraumatic, normocephalic. ABDOMEN: Soft. Nondistended. Appropriate surgical tenderness. Dressing to abdomen with small shadowing. Abdominal binder present. NEUROLOGIC: Alert and oriented. Cranial nerves II through XII grossly intact. ASSESSMENT: 1. Abdominal pain 2. Status post exploratory laparotomy with partial gastrectomy, repair of incisional hernia, and incidental appendectomy secondary to perforated ulcer of posterior wall stomach PLAN: 1. Discontinue NG tube 2. Begin sips of clear liquids 3. Pain control. Patient has Dilaudid and Toradol ordered. 4. Activity as tolerated 5. Continue encouragement of incentive spirometer Nurse practitioner note has been reviewed by physician. Signing provider agrees with the documented findings, assessment, and plan of care. Objective - Vital Signs Vital signs: Vital Signs Temp 98.0 F 05/11/19 07:40 Pulse 85 05/11/19 08:34 Resp 16 05/11/19 07:40 BP 127/79 05/11/19 07:40 Pulse Ox 96 05/11/19 07:40 Intake & Output 05/10/19 05/11/19 05/11/19 18:59 06:59 18:59 Output Total 100 100 Balance -100 -100 Output: Gastric Drainage 100 Drainage 100 NG Tube 100 Other: Voiding Method Indwelling Catheter Toilet Urinal # Voids 2 0 - Labs CBC & Chem 7: 05/10/19 06:47 05/10/19 06:47 Labs: Microbiology - Last 24 Hours (Table) 05/08/19 06:21 Blood Culture - Preliminary Blood No Growth after 72 hours <Rico Anguiano - Last Filed: 05/11/19 11:36> Subjective As above. Patient doing well. Begin sips of liquids today after removing nasogastric tube. Objective - Vital Signs Vital signs: Vital Signs Temp 98.0 F 05/11/19 07:40 Pulse 85 05/11/19 08:34 Resp 16 05/11/19 07:40 BP 127/79 05/11/19 07:40 Pulse Ox 96 05/11/19 07:40 Intake & Output 05/10/19 05/11/19 05/11/19 18:59 06:59 18:59 Output Total 100 100 Balance -100 -100 Output: Gastric Drainage 100 Drainage 100 NG Tube 100 Other: Voiding Method Indwelling Catheter Toilet Urinal # Voids 2 0 - Labs CBC & Chem 7: 05/10/19 06:47 05/10/19 06:47 Labs: Microbiology - Last 24 Hours (Table) 05/08/19 06:21 Blood Culture - Preliminary Blood No Growth after 72 hours
[2019-05-11] MEDS: LEVOFLOXACIN 500MG-D5W PMX 500 MG in DEXTROSE/WATER 1 100ML.BAG IVPB SCH (11:32)
--- NOTE | 2019-05-11 14:26 | XR ---
EXAMINATION TYPE: XR chest 2V DATE OF EXAM: 05/11/2019 COMPARISON: Chest x-ray from yesterday and older studies. HISTORY: Shortness of breath and pleural effusions. TECHNIQUE: Frontal and lateral views of the chest are obtained. FINDINGS: There is chronic parenchymal changes with persistent small to tiny bilateral pleural effus ions and associated bibasilar atelectasis and/or infiltrate. Upper lungs are clear without pneumothor ax. The cardiac silhouette size remains within normal limits. Interval resolution of right-sided pne umoperitoneum. Interval removal of nasogastric tube . The osseous structures are intact. IMPRESSION: Chronic parenchymal changes with multiple tiny bilateral pleural effusions and associated bibasilar atelectasis and/or infiltrate are all redemonstrated.
--- NOTE | 2019-05-11 17:23 | PN ---
PROGRESS NOTE DATE OF SERVICE: 05/11/2019 CHIEF COMPLAINT: Perforated gastric ulcer. HISTORY OF PRESENT ILLNESS: This gentleman is a little bit more comfortable today and he is a little bit less short of breath. Chest x-ray yesterday demonstrated an effusion. NG tube is still in. PHYSICAL EXAMINATION: Breath sounds are somewhat diminished, but they are generally clear. There are significant rales and rhonchi. Cardiac exam is normal. Bowel sounds are present. IMPRESSION: 1. Status post laparotomy and over-sewing of gastric ulcer. 2. Chronic obstructive pulmonary disease. 3. Pleural effusion. PLAN: Repeat chest x-ray. His NG tube will likely be able to be removed. MMODL / IJN: [id number] /
[2019-05-11] MEDS: HYDROmorphone 1 MG/ML 1 ML SYRINGE IVP PRN (19:50)
[2019-05-12] MEDS: HYDROmorphone 1 MG/ML 1 ML SYRINGE IVP PRN ×3 (05:44→21:28)
[2019-05-12] MEDS: BUDESONIDE 0.5 MG/2 ML NEBU INHALATION SCH ×2 (06:04→19:42)
[2019-05-12] MEDS: IPRATROPIUM-ALBUTEROL 3 ML NEB INHALATION SCH ×4 (06:04→19:42)
[2019-05-12] MEDS: LISINOPRIL 20 MG TAB PO SCH (07:44)
[2019-05-12] MEDS: metroNIDAZOLE-NS PMX 500 MG in SALINE 1 100ML.BAG IVPB SCH ×2 (07:44→16:44)
[2019-05-12] MEDS: PANTOPRAZOLE 40 MG/10 ML VIAL IV SCH (07:45)
[2019-05-12] MEDS: HEPARIN SODIUM,PORCINE 5,000 UNIT/ML 1 ML VIAL SQ SCH ×2 (07:45→16:44)
[2019-05-12 08:58] LABS: Basophils % (A) 1 %; Eosinophils # (A) 0.2 k/uL (0-0.7); Eosinophils % (A) 4 %; HGB 12.7 gm/dL (13.0-17.5); Lymphocytes # (A) 0.8 k/uL (1.0-4.8); Lymphocytes % (A) 12 %; MCH 31.6 pg (25.0-35.0); MCHC 34.4 g/dL (31.0-37.0); MCV 91.9 fL (80.0-100.0); Mean Platelet Volume 6.9; Monocytes # (A) 0.4 k/uL (0-1.0); Monocytes % (A) 7 %; Neutrophils # (A) 4.8 k/uL (1.3-7.7); Neutrophils % (A) 75 %; Platelet Count 146 k/uL (150-450); RBC 4.03 m/uL (4.30-5.90); RDW 13.2 % (11.5-15.5); WBC 6.4 k/uL (3.8-10.6)
[2019-05-12 09:16] LABS: African American GFR (CKD) >90 (>60 ml/min/1.73 sqM); Anion Gap 7 mmol/L; Blood Urea Nitrogen 24 mg/dL (9-20); Calcium 7.9 mg/dL (8.4-10.2); Carbon Dioxide 23 mmol/L (22-30); Chloride 108 mmol/L (98-107); Glucose 125 mg/dL (74-99); Potassium 3.8 mmol/L (3.5-5.1); Sodium 138 mmol/L (137-145)
[2019-05-12] MEDS: LEVOFLOXACIN 500MG-D5W PMX 500 MG in DEXTROSE/WATER 1 100ML.BAG IVPB SCH (09:30)
[2019-05-12] MEDS ORDERED: POTASSIUM CHLORIDE ER 20 MEQ TAB.ER PO STA (11:06)
--- NOTE | 2019-05-12 11:07 | P.PN ---
<AbdullahiLiza Franc - Last Filed: 05/12/19 11:05> Subjective Progress Note Date: 05/12/19 CHIEF COMPLAINT: abdominal pain HISTORY OF PRESENT ILLNESS: 64-year-old male who is status post exploratory laparotomy with partial gastrectomy, repair of incisional hernia, and incidental appendectomy secondary to perforated ulcer of posterior wall stomach. POD #4. Patient examined at the bedside this morning. Patient reports his pain is tolerable. Tolerating clear liquid diet. Denies nausea or vomiting. Reports passing flatus. BM overnight. WBC 6.4. Hemoglobin 12.7. PHYSICAL EXAM: VITAL SIGNS: Reviewed. GENERAL: Well-developed in no acute distress. HEENT: NG to LIS. No sclera icterus. Extraocular movements grossly intact. Moist buccal mucosa. Head is atraumatic, normocephalic. ABDOMEN: Soft. Nondistended. Appropriate surgical tenderness. Dressing to abdomen with small shadowing. Abdominal binder present. NEUROLOGIC: Alert and oriented. Cranial nerves II through XII grossly intact. ASSESSMENT: 1. Abdominal pain 2. Status post exploratory laparotomy with partial gastrectomy, repair of incisional hernia, and incidental appendectomy secondary to perforated ulcer of posterior wall stomach PLAN: 1. Advance diet to full liquids 2. Pain control. Patient has Dilaudid and Toradol ordered. 3. Activity as tolerated 4. Continue encouragement of incentive spirometer Nurse practitioner note has been reviewed by physician. Signing provider agrees with the documented findings, assessment, and plan of care. Objective - Vital Signs Vital signs: Vital Signs Temp 98.5 F 05/12/19 07:00 Pulse 87 05/12/19 08:00 Resp 12 05/12/19 08:00 BP 134/67 05/12/19 07:00 Pulse Ox 93 L 05/12/19 07:00 Intake & Output 05/11/19 05/12/19 05/12/19 18:59 06:59 18:59 Intake Total 100 300 Output Total 2 1 Balance 98 299 Intake: Intake, IV Titration 100 Amount metroNIDAZOLE-NS PMX 500 100 mg In Saline 1 100ml.bag @ 100 mls/hr IVPB Q8HR [facility] Rx#:[id number] Oral 300 Output: Stool 2 1 Other: Voiding Method Toilet Toilet Toilet Urinal Urinal Urinal # Voids 2 1 - Labs CBC & Chem 7: 05/12/19 08:37 05/12/19 08:37 Labs: Abnormal Lab Results - Last 24 Hours (Table) 05/12/19 05/12/19 Range/Units 08:37 08:37 RBC 4.03 L (4.30-5.90) m/uL Hgb 12.7 L (13.0-17.5) gm/dL Hct 37.0 L (39.0-53.0) % Plt Count 146 L (150-450) k/uL Lymphocytes # 0.8 L (1.0-4.8) k/uL Chloride 108 H (98-107) mmol/L BUN 24 H (9-20) mg/dL Glucose 125 H (74-99) mg/dL Calcium 7.9 L (8.4-10.2) mg/dL Microbiology - Last 24 Hours (Table) 05/08/19 06:21 Blood Culture - Preliminary Blood No Growth after 96 hours <Rico Anguiano - Last Filed: 05/12/19 13:27> Subjective As above. Patient doing well today. Pain is controlled. He did have a bowel movement. White blood cell count normal. Begin full liquid diet. Probable discharge tomorrow or Thursday. Objective - Vital Signs Vital signs: Vital Signs Temp 98.5 F 05/12/19 07:00 Pulse 84 05/12/19 12:01 Resp 12 05/12/19 08:00 BP 134/67 05/12/19 07:00 Pulse Ox 93 L 05/12/19 07:00 Intake & Output 05/11/19 05/12/19 05/12/19 18:59 06:59 18:59 Intake Total 100 300 Output Total 2 1 Balance 98 299 Weight 70.76 kg Intake: Intake, IV Titration 100 Amount metroNIDAZOLE-NS PMX 500 100 mg In Saline 1 100ml.bag @ 100 mls/hr IVPB Q8HR [facility] Rx#:[id number] Oral 300 Output: Stool 2 1 Other: Voiding Method Toilet Toilet Toilet Urinal Urinal Urinal # Voids 2 1 - Labs CBC & Chem 7: 05/12/19 08:37 05/12/19 08:37 Labs: Abnormal Lab Results - Last 24 Hours (Table) 05/12/19 05/12/19 Range/Units 08:37 08:37 RBC 4.03 L (4.30-5.90) m/uL Hgb 12.7 L (13.0-17.5) gm/dL Hct 37.0 L (39.0-53.0) % Plt Count 146 L (150-450) k/uL Lymphocytes # 0.8 L (1.0-4.8) k/uL Chloride 108 H (98-107) mmol/L BUN 24 H (9-20) mg/dL Glucose 125 H (74-99) mg/dL Calcium 7.9 L (8.4-10.2) mg/dL Microbiology - Last 24 Hours (Table) 05/08/19 06:21 Blood Culture - Preliminary Blood No Growth after 96 hours
[2019-05-12 13:16] VITALS: BMI 23.0
--- NOTE | 2019-05-12 20:36 | PN ---
PROGRESS NOTE CHIEF COMPLAINT: Perforated ulcer. HISTORY OF PRESENT ILLNESS: This gentleman is doing well. An NG tube is out. Pain is improving and he is on clear liquids. PHYSICAL EXAM: Chest is clear. Cardiac exam is normal. The abdomen reveals normal bowel sounds. IMPRESSION: Status post laparotomy and perforated gastric ulcer. PLAN: No change in program except gradually increase diet and activity. MMODL / IJN: [id number] /
[2019-05-13] MEDS: HEPARIN SODIUM,PORCINE 5,000 UNIT/ML 1 ML VIAL SQ SCH ×4 (00:56→23:09)
[2019-05-13] MEDS: metroNIDAZOLE-NS PMX 500 MG in SALINE 1 100ML.BAG IVPB SCH ×4 (00:56→23:10)
[2019-05-13] MEDS: HYDROmorphone 1 MG/ML 1 ML SYRINGE IVP PRN (07:43)
[2019-05-13] MEDS: PANTOPRAZOLE 40 MG/10 ML VIAL IV SCH (07:46)
[2019-05-13] MEDS: LISINOPRIL 20 MG TAB PO SCH (07:46)
[2019-05-13] MEDS: IPRATROPIUM-ALBUTEROL 3 ML NEB INHALATION SCH ×5 (08:13→21:38)
[2019-05-13] MEDS: BUDESONIDE 0.5 MG/2 ML NEBU INHALATION SCH ×2 (08:13→21:38)
[2019-05-13] MEDS: LEVOFLOXACIN 500MG-D5W PMX 500 MG in DEXTROSE/WATER 1 100ML.BAG IVPB SCH (09:02)
--- NOTE | 2019-05-13 11:10 | P.PN ---
<AbdullahiLiza Franc - Last Filed: 05/13/19 11:33> Subjective Progress Note Date: 05/13/19 CHIEF COMPLAINT: abdominal pain HISTORY OF PRESENT ILLNESS: 64-year-old male who is status post exploratory laparotomy with partial gastrectomy, repair of incisional hernia, and incidental appendectomy secondary to perforated ulcer of posterior wall stomach. POD #5. Patient examined at the bedside this morning. Patient reports having some increased abdominal pain overnight due to coughing. He did require a dose of IV narcotics this morning. His pain is now tolerable at the time of my exam. He is tolerating full liquid diet. passing flatus and having bowel movements. Denies nausea or vomiting. PHYSICAL EXAM: VITAL SIGNS: Reviewed. GENERAL: Well-developed in no acute distress. HEENT: No sclera icterus. Extraocular movements grossly intact. Moist buccal mucosa. Head is atraumatic, normocephalic. ABDOMEN: Soft. Nondistended. Appropriate surgical tenderness. Dressing to abdomen with small shadowing. Abdominal binder present. NEUROLOGIC: Alert and oriented. Cranial nerves II through XII grossly intact. ASSESSMENT: 1. Abdominal pain 2. Status post exploratory laparotomy with partial gastrectomy, repair of incisional hernia, and incidental appendectomy secondary to perforated ulcer of posterior wall stomach PLAN: 1. Advance diet 2. Pain control. IV dilaudid if needed. Patient states he can not take [place] or Tylenol. No NSAIDS due to perforated ulcer. Patient reports taking Ultram during previous admission and tolerated well. We will add to regimen. 3. Activity as tolerated 4. Continue encouragement of incentive spirometer 5. Patient states he does not feel ready for discharge this afternoon. He would like to wait until tomorrow due to his coughing spell this morning and increased pain. Anticipate discharge home tomorrow. Nurse practitioner note has been reviewed by physician. Signing provider agrees with the documented findings, assessment, and plan of care. Objective - Vital Signs Vital signs: Vital Signs Temp 98.2 F 05/13/19 07:00 Pulse 90 05/13/19 08:29 Resp 16 05/13/19 08:00 BP 144/78 05/13/19 07:00 Pulse Ox 91 L 05/13/19 07:00 Intake & Output 05/12/19 05/13/19 05/13/19 18:59 06:59 18:59 Intake Total 500 120 Output Total 1 Balance 499 120 Weight 70.76 kg Intake: IV 120 0.9 Sodium Chloride @ 150 120 Intake, IV Titration 200 Amount Levofloxacin 500Mg-D5w 100 Pmx 500 mg In Dextrose/ Water 1 100ml.bag @ 100 mls/hr IVPB Q24H [facility] Rx#: [id number] metroNIDAZOLE-NS PMX 500 100 mg In Saline 1 100ml.bag @ 100 mls/hr IVPB Q8HR [facility] Rx#:[id number] Oral 300 Output: Stool 1 Other: Voiding Method Toilet Toilet Toilet Urinal Urinal # Voids 1 - Labs CBC & Chem 7: 05/12/19 08:37 05/12/19 08:37 Labs: Microbiology - Last 24 Hours (Table) 05/08/19 06:21 Blood Culture - Preliminary Blood No Growth after 120 hours <Rico Anguiano - Last Filed: 05/13/19 13:26> Subjective As above. Patient doing well. He did have some discomfort after coughing this morning. Abdomen dressing removed. Some rash across abdomen likely from binder. We'll discontinue the abdominal binder. Continue IV antibiotics. Will advance diet. Anticipate discharge tomorrow. Objective - Vital Signs Vital signs: Vital Signs Temp 98.2 F 05/13/19 07:00 Pulse 86 05/13/19 12:06 Resp 16 05/13/19 08:00 BP 144/78 05/13/19 07:00 Pulse Ox 91 L 05/13/19 07:00 Intake & Output 05/12/19 05/13/19 05/13/19 18:59 06:59 18:59 Intake Total 500 120 Output Total 1 Balance 499 120 Weight 70.76 kg 70.76 kg Intake: IV 120 0.9 Sodium Chloride @ 150 120 Intake, IV Titration 200 Amount Levofloxacin 500Mg-D5w 100 Pmx 500 mg In Dextrose/ Water 1 100ml.bag @ 100 mls/hr IVPB Q24H [facility] Rx#: [id number] metroNIDAZOLE-NS PMX 500 100 mg In Saline 1 100ml.bag @ 100 mls/hr IVPB Q8HR [facility] Rx#:[id number] Oral 300 Output: Stool 1 Other: Voiding Method Toilet Toilet Toilet Urinal Urinal # Voids 1 - Labs CBC & Chem 7: 05/12/19 08:37 05/12/19 08:37 Labs: Microbiology - Last 24 Hours (Table) 05/08/19 06:21 Blood Culture - Preliminary Blood No Growth after 120 hours
[2019-05-13] MEDS: traMADol 50 MG TAB PO PRN ×2 (12:57→18:25)
--- NOTE | 2019-05-13 19:01 | PN ---
PROGRESS NOTE CHIEF COMPLAINT: Status post perforated ulcer. HISTORY OF PRESENT ILLNESS: This gentleman is doing well. He is being advanced on his diet. Pain is improving. PHYSICAL EXAMINATION: Chest is clear. Cardiac exam is normal. Abdomen is soft, nontender. IMPRESSION: 1. Status post perforated gastric ulcer with subtotal colectomy. 2. Chronic obstructive pulmonary disease. PLAN: Probably home tomorrow. MMODL / IJN: [id number] /
[2019-05-14] MEDS: traMADol 50 MG TAB PO PRN ×2 (06:19→12:51)
[2019-05-14] MEDS: BUDESONIDE 0.5 MG/2 ML NEBU INHALATION SCH (07:29)
[2019-05-14] MEDS: IPRATROPIUM-ALBUTEROL 3 ML NEB INHALATION SCH ×2 (07:29→11:00)
[2019-05-14] MEDS: LISINOPRIL 20 MG TAB PO SCH (08:27)
[2019-05-14] MEDS: PANTOPRAZOLE 40 MG/10 ML VIAL IV SCH (08:27)
[2019-05-14] MEDS: HEPARIN SODIUM,PORCINE 5,000 UNIT/ML 1 ML VIAL SQ SCH (08:27)
[2019-05-14] MEDS: metroNIDAZOLE-NS PMX 500 MG in SALINE 1 100ML.BAG IVPB SCH (08:28)
[2019-05-14 08:36] VITALS: BP 128/71; RESP 20; TEMP 98.4
[2019-05-14] MEDS: LEVOFLOXACIN 500MG-D5W PMX 500 MG in DEXTROSE/WATER 1 100ML.BAG IVPB SCH (09:54)
[2019-05-14 11:02] VITALS: PULSE 76
--- NOTE | 2019-05-14 13:00 | P.DS ---
Providers Date of admission: 05/08/19 09:08 Expected date of discharge: 05/14/19 Attending physician: Rico Anguiano Consults: 05/08/19 13:12 Consult Physician Routine Consulting Provider: Gerson Plasencia Consult Reason/Comments: COPD Do you want consulting provider notified?: Yes Consult Physician Routine Consulting Provider: Nathan Louise Consult Reason/Comments: Medical management Do you want consulting provider notified?: Yes Primary care physician: Nathan Louise - Discharge Diagnosis(es) (1) Perforated gastric ulcer Status: Acute (2) Acute abdomen Status: Acute (3) Pneumoperitoneum Status: Acute (4) Incisional hernia Status: Acute Hospital Course: CHIEF COMPLAINT: Perforated gastric ulcer HISTORY OF PRESENT ILLNESS: The patient is a 64-year-old male status post repair of perforated gastric ulcer, 05/08/19. POD 6. He presented acutely with abdominal pain and free air. He is status post repair. He is doing well today. He is tolerating diet. ROS: No reports of nausea and vomiting. He had bowel movements. No fevers or chills. No new chest pain. No productive sputum PHYSICAL EXAM: VITAL SIGNS: Reviewed CONSTITUTIONAL: Well developed and in no acute distress. EYES: Conjuctivae without sclera icterus. Extraocular movements grossly intact. HEAD, EARS, NOSE, THROAT: Moist buccal mucosa. Head is atraumatic, normocephalic. Hears conversational speech. No nasal drainage. NECK: Supple. No thyroidomegaly. RESPIRATORY: Non-labored respirations and equal bilateral excursions. CARDIOVASCULAR: Palpable 2+ radial pulses. Regular rate. Regular rhythm. ABDOMEN: Incisions clean dry and intact. Soft. No peritonitis. Non-tender. MUSCULOSKELETAL: No gross deformity of the lower extremities noted. No clubbing. No cyanosis. SKIN: Good skin turgor. Well perfused. NEUROLOGIC: Cranial nerves I through XII grossly intact. No focal or lateralizing signs. PSYCH: Appropriate affect. Alert and oriented to person, place and time. CLINCAL LABS: White blood cell count normal from 05/12/19 ASSESSMENT: 1. Perforated gastric ulcer PLAN: 1. Discharge instructions for wound care management performed. 2. Weight lifting restrictions reviewed. 3. Discharge home with Optifoam dressing. Vital Signs 05/08/19 05/08/19 05/08/19 04:12 05:07 05:57 Temperature 97.5 F L 98.4 F Pulse Rate 83 99 98 Pulse Rate [ Pulse Oximetery ] Pulse Rate [ Right] Respiratory 18 18 18 Rate Blood Pressure 124/77 122/75 131/78 Blood Pressure [Left Arm Supine] Blood Pressure [Left Arm] O2 Sat by Pulse 98 99 98 Oximetry 05/08/19 05/08/19 05/08/19 08:17 08:26 13:18 Temperature 98.0 F Pulse Rate 94 94 Pulse Rate [ Pulse Oximetery ] Pulse Rate [ 84 Right] Respiratory 18 Rate Blood Pressure Blood Pressure 96/52 [Left Arm Supine] Blood Pressure [Left Arm] O2 Sat by Pulse 99 Oximetry 05/08/19 05/08/19 05/08/19 13:30 13:45 14:00 Temperature Pulse Rate Pulse Rate [ Pulse Oximetery ] Pulse Rate [ 81 84 79 Right] Respiratory 16 16 16 Rate Blood Pressure Blood Pressure 95/55 92/52 94/52 [Left Arm Supine] Blood Pressure [Left Arm] O2 Sat by Pulse 92 L 92 L 94 L Oximetry 05/08/19 05/08/19 05/08/19 14:25 14:40 14:55 Temperature 98.1 F Pulse Rate Pulse Rate [ 82 86 80 Pulse Oximetery ] Pulse Rate [ Right] Respiratory 20 18 16 Rate Blood Pressure Blood Pressure 100/64 108/69 111/71 [Left Arm Supine] Blood Pressure [Left Arm] O2 Sat by Pulse 91 L 100 100 Oximetry 05/08/19 05/08/19 05/08/19 15:10 15:25 15:40 Temperature Pulse Rate Pulse Rate [ 82 75 77 Pulse Oximetery ] Pulse Rate [ Right] Respiratory 18 18 18 Rate Blood Pressure Blood Pressure 116/71 103/67 111/66 [Left Arm Supine] Blood Pressure [Left Arm] O2 Sat by Pulse 100 100 99 Oximetry 05/08/19 05/08/19 05/08/19 15:55 16:10 19:55 Temperature 98.7 F Pulse Rate Pulse Rate [ 78 79 Pulse Oximetery ] Pulse Rate [ 78 Right] Respiratory 18 20 16 Rate Blood Pressure Blood Pressure 102/66 114/71 107/64 [Left Arm Supine] Blood Pressure [Left Arm] O2 Sat by Pulse 98 97 95 Oximetry 05/09/19 05/09/19 05/09/19 00:57 01:03 01:57 Temperature 98.2 F Pulse Rate 78 84 Pulse Rate [ 79 Pulse Oximetery ] Pulse Rate [ Right] Respiratory 18 Rate Blood Pressure Blood Pressure 104/53 [Left Arm Supine] Blood Pressure [Left Arm] O2 Sat by Pulse 93 L Oximetry 05/09/19 05/09/19 05/09/19 07:00 08:24 08:35 Temperature 97.6 F Pulse Rate 88 80 Pulse Rate [ 74 Pulse Oximetery ] Pulse Rate [ Right] Respiratory 18 Rate Blood Pressure Blood Pressure 105/58 [Left Arm Supine] Blood Pressure [Left Arm] O2 Sat by Pulse 94 L Oximetry 05/09/19 05/09/19 05/09/19 11:56 12:09 13:50 Temperature 98.2 F Pulse Rate 80 83 Pulse Rate [ 96 Pulse Oximetery ] Pulse Rate [ Right] Respiratory 15 Rate Blood Pressure Blood Pressure 121/58 [Left Arm Supine] Blood Pressure [Left Arm] O2 Sat by Pulse 89 L Oximetry 05/09/19 05/09/19 05/09/19 19:30 20:39 20:48 Temperature 98.8 F Pulse Rate 70 70 Pulse Rate [ 54 L Pulse Oximetery ] Pulse Rate [ Right] Respiratory 17 Rate Blood Pressure Blood Pressure 119/66 [Left Arm Supine] Blood Pressure [Left Arm] O2 Sat by Pulse 94 L Oximetry 05/10/19 05/10/19 05/10/19 01:46 07:15 07:27 Temperature 97.9 F Pulse Rate 88 97 Pulse Rate [ 82 Pulse Oximetery ] Pulse Rate [ Right] Respiratory 18 Rate Blood Pressure Blood Pressure 132/73 [Left Arm Supine] Blood Pressure [Left Arm] O2 Sat by Pulse 93 L 91 L Oximetry 05/10/19 05/10/19 05/10/19 08:04 11:13 11:24 Temperature 98.5 F Pulse Rate 80 84 Pulse Rate [ 105 H Pulse Oximetery ] Pulse Rate [ Right] Respiratory Rate Blood Pressure Blood Pressure 157/74 [Left Arm Supine] Blood Pressure [Left Arm] O2 Sat by Pulse 92 L Oximetry 05/10/19 05/10/19 05/10/19 14:35 15:59 16:08 Temperature 97.9 F Pulse Rate 85 85 Pulse Rate [ 85 Pulse Oximetery ] Pulse Rate [ Right] Respiratory 15 Rate Blood Pressure Blood Pressure 124/70 [Left Arm Supine] Blood Pressure [Left Arm] O2 Sat by Pulse 95 Oximetry 05/10/19 05/10/19 05/10/19 19:11 19:32 19:47 Temperature 97.7 F Pulse Rate 79 82 Pulse Rate [ 79 Pulse Oximetery ] Pulse Rate [ Right] Respiratory 20 Rate Blood Pressure Blood Pressure 115/65 [Left Arm Supine] Blood Pressure [Left Arm] O2 Sat by Pulse 92 L Oximetry 05/10/19 05/11/19 05/11/19 20:45 00:55 02:32 Temperature 98.8 F Pulse Rate Pulse Rate [ 84 Pulse Oximetery ] Pulse Rate [ Right] Respiratory 16 16 16 Rate Blood Pressure Blood Pressure 129/75 [Left Arm Supine] Blood Pressure [Left Arm] O2 Sat by Pulse 97 Oximetry 05/11/19 05/11/19 05/11/19 04:00 04:13 04:20 Temperature Pulse Rate 88 88 Pulse Rate [ Pulse Oximetery ] Pulse Rate [ Right] Respiratory 16 Rate Blood Pressure Blood Pressure [Left Arm Supine] Blood Pressure [Left Arm] O2 Sat by Pulse 93 L Oximetry 05/11/19 05/11/19 05/11/19 07:40 08:09 08:34 Temperature 98.0 F Pulse Rate 85 85 Pulse Rate [ 87 Pulse Oximetery ] Pulse Rate [ Right] Respiratory 16 Rate Blood Pressure Blood Pressure 127/79 [Left Arm Supine] Blood Pressure [Left Arm] O2 Sat by Pulse 96 Oximetry 05/11/19 05/11/19 05/11/19 12:16 12:33 15:36 Temperature 99.1 F Pulse Rate 90 88 Pulse Rate [ 98 Pulse Oximetery ] Pulse Rate [ Right] Respiratory 16 Rate Blood Pressure Blood Pressure 124/74 [Left Arm Supine] Blood Pressure [Left Arm] O2 Sat by Pulse 93 L Oximetry 05/11/19 05/11/19 05/11/19 17:08 19:40 19:55 Temperature 97.6 F Pulse Rate 90 Pulse Rate [ 93 Pulse Oximetery ] Pulse Rate [ Right] Respiratory 20 Rate Blood Pressure Blood Pressure 148/71 [Left Arm Supine] Blood Pressure [Left Arm] O2 Sat by Pulse 93 L 94 L Oximetry 05/11/19 05/11/19 05/11/19 19:58 20:09 23:30 Temperature Pulse Rate 88 Pulse Rate [ Pulse Oximetery ] Pulse Rate [ Right] Respiratory 20 20 Rate Blood Pressure Blood Pressure [Left Arm Supine] Blood Pressure [Left Arm] O2 Sat by Pulse Oximetry 05/12/19 05/12/19 05/12/19 00:54 03:05 06:05 Temperature 97.9 F Pulse Rate 84 Pulse Rate [ 91 Pulse Oximetery ] Pulse Rate [ Right] Respiratory 14 16 Rate Blood Pressure Blood Pressure 141/75 [Left Arm Supine] Blood Pressure [Left Arm] O2 Sat by Pulse 92 L Oximetry 05/12/19 05/12/19 05/12/19 06:20 07:00 08:00 Temperature 98.5 F Pulse Rate 84 Pulse Rate [ 87 87 Pulse Oximetery ] Pulse Rate [ Right] Respiratory 12 12 Rate Blood Pressure Blood Pressure 134/67 [Left Arm Supine] Blood Pressure [Left Arm] O2 Sat by Pulse 93 L Oximetry 05/12/19 05/12/19 05/12/19 11:49 12:01 14:24 Temperature 98.2 F Pulse Rate 80 84 Pulse Rate [ 87 Pulse Oximetery ] Pulse Rate [ Right] Respiratory 12 Rate Blood Pressure Blood Pressure 130/73 [Left Arm Supine] Blood Pressure [Left Arm] O2 Sat by Pulse 93 L Oximetry 05/12/19 05/12/19 05/12/19 15:45 16:06 19:09 Temperature 97.9 F Pulse Rate 86 88 Pulse Rate [ 90 Pulse Oximetery ] Pulse Rate [ Right] Respiratory 17 Rate Blood Pressure Blood Pressure 116/68 [Left Arm Supine] Blood Pressure [Left Arm] O2 Sat by Pulse 94 L Oximetry 05/12/19 05/12/19 05/12/19 19:42 19:49 19:57 Temperature Pulse Rate 90 92 Pulse Rate [ Pulse Oximetery ] Pulse Rate [ Right] Respiratory 20 Rate Blood Pressure Blood Pressure [Left Arm Supine] Blood Pressure [Left Arm] O2 Sat by Pulse Oximetry 05/13/19 05/13/19 05/13/19 00:20 01:46 04:00 Temperature 98.0 F Pulse Rate Pulse Rate [ 85 Pulse Oximetery ] Pulse Rate [ Right] Respiratory 20 16 16 Rate Blood Pressure Blood Pressure 118/71 [Left Arm Supine] Blood Pressure [Left Arm] O2 Sat by Pulse 95 Oximetry 05/13/19 05/13/19 05/13/19 07:00 08:00 08:13 Temperature 98.2 F Pulse Rate 92 Pulse Rate [ 86 86 Pulse Oximetery ] Pulse Rate [ Right] Respiratory 16 16 Rate Blood Pressure Blood Pressure [Left Arm Supine] Blood Pressure 144/78 [Left Arm] O2 Sat by Pulse 91 L Oximetry 05/13/19 05/13/19 05/13/19 08:29 11:44 12:06 Temperature Pulse Rate 90 88 86 Pulse Rate [ Pulse Oximetery ] Pulse Rate [ Right] Respiratory Rate Blood Pressure Blood Pressure [Left Arm Supine] Blood Pressure [Left Arm] O2 Sat by Pulse Oximetry 05/13/19 05/13/19 05/13/19 14:11 16:40 16:50 Temperature 97.7 F Pulse Rate 92 88 Pulse Rate [ 100 Pulse Oximetery ] Pulse Rate [ Right] Respiratory 16 Rate Blood Pressure Blood Pressure [Left Arm Supine] Blood Pressure 134/84 [Left Arm] O2 Sat by Pulse 96 Oximetry 05/13/19 05/13/19 05/13/19 19:33 21:38 21:48 Temperature 98.0 F Pulse Rate 75 78 Pulse Rate [ 75 Pulse Oximetery ] Pulse Rate [ Right] Respiratory 18 Rate Blood Pressure Blood Pressure [Left Arm Supine] Blood Pressure 121/74 [Left Arm] O2 Sat by Pulse 94 L Oximetry 05/14/19 05/14/19 05/14/19 01:47 07:23 07:31 Temperature 98.0 F 98.4 F Pulse Rate 76 Pulse Rate [ 71 86 Pulse Oximetery ] Pulse Rate [ Right] Respiratory 16 20 Rate Blood Pressure Blood Pressure [Left Arm Supine] Blood Pressure 118/69 128/71 [Left Arm] O2 Sat by Pulse 93 L 91 L Oximetry 05/14/19 05/14/19 05/14/19 07:50 11:01 11:10 Temperature Pulse Rate 80 76 76 Pulse Rate [ Pulse Oximetery ] Pulse Rate [ Right] Respiratory Rate Blood Pressure Blood Pressure [Left Arm Supine] Blood Pressure [Left Arm] O2 Sat by Pulse Oximetry Laboratory Last Values WBC 6.4 k/uL (3.8-10.6) 05/12/19 08:37 RBC 4.03 m/uL (4.30-5.90) L 05/12/19 08:37 Hgb 12.7 gm/dL (13.0-17.5) L 05/12/19 08:37 Hct 37.0 % (39.0-53.0) L 05/12/19 08:37 MCV 91.9 fL (80.0-100.0) 05/12/19 08:37 MCH 31.6 pg (25.0-35.0) 05/12/19 08:37 MCHC 34.4 g/dL (31.0-37.0) 05/12/19 08:37 RDW 13.2 % (11.5-15.5) 05/12/19 08:37 Plt Count 146 k/uL (150-450) L 05/12/19 08:37 Neutrophils % 75 % 05/12/19 08:37 Lymphocytes % 12 % 05/12/19 08:37 Monocytes % 7 % 05/12/19 08:37 Eosinophils % 4 % 05/12/19 08:37 Basophils % 1 % 05/12/19 08:37 Neutrophils # 4.8 k/uL (1.3-7.7) 05/12/19 08:37 Lymphocytes # 0.8 k/uL (1.0-4.8) L 05/12/19 08:37 Monocytes # 0.4 k/uL (0-1.0) 05/12/19 08:37 Eosinophils # 0.2 k/uL (0-0.7) 05/12/19 08:37 Basophils # 0.0 k/uL (0-0.2) 05/12/19 08:37 Manual Slide Review Performed 05/09/19 07:28 Poikilocytosis (manual Present 05/09/19 07:28 Sodium 138 mmol/L (137-145) 05/12/19 08:37 Potassium 3.8 mmol/L (3.5-5.1) 05/12/19 08:37 Chloride 108 mmol/L (98-107) H 05/12/19 08:37 Carbon Dioxide 23 mmol/L (22-30) 05/12/19 08:37 Anion Gap 7 mmol/L 05/12/19 08:37 BUN 24 mg/dL (9-20) H 05/12/19 08:37 Creatinine 0.70 mg/dL (0.66-1.25) 05/12/19 08:37 Est GFR (CKD-EPI)AfAm >90 (>60 ml/min/1.73 sqM) 05/12/19 08:37 Est GFR (CKD-EPI)NonAf >90 (>60 ml/min/1.73 sqM) 05/12/19 08:37 Glucose 125 mg/dL (74-99) H 05/12/19 08:37 Plasma Lactic Acid [place] 1.5 mmol/L (0.7-2.0) 05/08/19 06:21 Calcium 7.9 mg/dL (8.4-10.2) L 05/12/19 08:37 Total Bilirubin 0.6 mg/dL (0.2-1.3) 05/09/19 07:28 AST 33 U/L (17-59) 05/09/19 07:28 ALT 16 U/L (21-72) L 05/09/19 07:28 Alkaline Phosphatase 46 U/L (38-126) 05/09/19 07:28 Total Protein 5.0 g/dL (6.3-8.2) L 05/09/19 07:28 Albumin 2.7 g/dL (3.5-5.0) L 05/09/19 07:28 Amylase 57 U/L (30-110) 05/08/19 05:16 Lipase 67 U/L (23-300) 05/08/19 05:16 Urine Color Yellow 05/08/19 05:16 Urine Appearance Clear (Clear) 05/08/19 05:16 Urine pH 6.0 (5.0-8.0) 05/08/19 05:16 Ur Specific [place] 1.037 (1.001-1.035) H 05/08/19 05:16 Urine Protein 1+ (Negative) H 05/08/19 05:16 Urine Glucose (UA) Negative (Negative) 05/08/19 05:16 Urine Ketones Trace (Negative) H 05/08/19 05:16 Urine Blood Negative (Negative) 05/08/19 05:16 Urine Nitrite Negative (Negative) 05/08/19 05:16 Urine Bilirubin Negative (Negative) 05/08/19 05:16 Urine Urobilinogen 2.0 mg/dL (<2.0) 05/08/19 05:16 Ur Leukocyte Esterase Trace (Negative) H 05/08/19 05:16 Urine RBC 3 /hpf (0-5) 05/08/19 05:16 Urine WBC 10 /hpf (0-5) H 05/08/19 05:16 Ur Squamous Epith Cells 1 /hpf (0-4) 05/08/19 05:16 Urine Bacteria Rare /hpf (None) H 05/08/19 05:16 Hyaline Casts 29 /lpf (0-2) H 05/08/19 05:16 Urine Mucus Many /hpf (None) H 05/08/19 05:16 Procedures: Date of Procedure: 05/08/19 Procedure(s) Performed: PREOPERATIVE DIAGNOSIS: Pneumoperitoneum, incisional hernia POSTOPERATIVE DIAGNOSIS: Perforated ulcer posterior wall stomach, small incisional hernia PROCEDURE: Exploratory laparotomy with partial gastrectomy, repair incisional he rnia, incidental appendectomy SURGEON: Silvio EBL: 50 mL ANESTHESIA: General COMPLICATIONS: None Patient Condition at Discharge: Good Plan - Discharge Summary Discharge Rx Participant: Yes New Discharge Prescriptions: New traMADol HCl [Ultram] 50 mg PO Q4HR PRN 3 Days #18 tab PRN Reason: Pain Levofloxacin [Levaquin] 500 mg PO DAILY #7 tab No Action Albuterol Inhaler [Ventolin Hfa Inhaler] 2 puff INHALATION RT-Q6H PRN PRN Reason: Shortness Of Breath Benazepril HCl 20 mg PO DAILY Loratadine [Claritin] 10 mg PO DAILY Ipratropium-Albuterol Nebulize [Duoneb 0.5 mg-3 mg/3 ml Soln] 3 ml INHALATION RT-QID #120 ampul.neb Simvastatin [Zocor] 10 mg PO DAILY Naproxen Sodium [Aleve] 220 mg PO DAILY PRN PRN Reason: Pain Multivitamins, Thera [Multivitamin (formulary)] 1 tab PO DAILY Turmeric Root Extract [Turmeric] 500 mg PO DAILY Glucosamine Sulfate 500 mg PO DAILY Ascorbic Acid [Vitamin C] 500 mg PO DAILY Potassium 99 mg PO DAILY Omeprazole 20 mg PO DAILY Ferrous Sulfate [Feosol] 325 mg PO DAILY Cholecalciferol [Vitamin D3 (25 Mcg = 1000 Iu)] 1,000 unit PO DAILY Discharge Medication List Albuterol Inhaler [Ventolin Hfa Inhaler] 2 puff INHALATION RT-Q6H PRN 07/16/16 [History] Benazepril HCl 20 mg PO DAILY 07/16/16 [History] Loratadine [Claritin] 10 mg PO DAILY 07/16/16 [History] Ipratropium-Albuterol Nebulize [Duoneb 0.5 mg-3 mg/3 ml Soln] 3 ml INHALATION RT-QID #120 ampul.neb 07/25/16 [Rx] Ascorbic Acid [Vitamin C] 500 mg PO DAILY 05/08/19 [History] Cholecalciferol [Vitamin D3 (25 Mcg = 1000 Iu)] 1,000 unit PO DAILY 05/08/19 [History] Ferrous Sulfate [Feosol] 325 mg PO DAILY 05/08/19 [History] Glucosamine Sulfate 500 mg PO DAILY 05/08/19 [History] Multivitamins, Thera [Multivitamin (formulary)] 1 tab PO DAILY 05/08/19 [History] Naproxen Sodium [Aleve] 220 mg PO DAILY PRN 05/08/19 [History] Omeprazole 20 mg PO DAILY 05/08/19 [History] Potassium 99 mg PO DAILY 05/08/19 [History] Simvastatin [Zocor] 10 mg PO DAILY 05/08/19 [History] Turmeric Root Extract [Turmeric] 500 mg PO DAILY 05/08/19 [History] Levofloxacin [Levaquin] 500 mg PO DAILY #7 tab 05/13/19 [Rx] traMADol HCl [Ultram] 50 mg PO Q4HR PRN 3 Days #18 tab 05/13/19 [Rx] Follow up Appointment(s)/Referral(s): Rico Anguiano MD [Medical Doctor] - 1 Week (Please call the office Thursday to schedule appointment ) Nathan Louise MD [Primary Care Provider] - 1-2 days (Please call and [facility] appointment on Thursday) Patient Instructions/Handouts: Peptic Ulcer (DC), Diet for Stomach Ulcers and Gastritis (GEN), Exploratory Laparotomy (DC) Activity/Diet/Wound Care/Special Instructions: May shower. No bath tub soaks. No lifting over 10 pounds until seen by your surgeon. Dressing placed May 14-Remove dressing in 5 days. (May 19.) Discharge Disposition: HOME SELF-CARE
--- NOTE | 2019-05-14 17:23 | PN ---
PROGRESS NOTE CHIEF COMPLAINT: Status post perforated gastric ulcer. HISTORY OF PRESENT ILLNESS: This gentleman is doing well and is expected to go home today. REVIEW OF SYSTEMS: He is not having any fever, chills, nausea, vomiting, etc. He is eating well. He is passing stool and gas. Laboratory studies are normal. PHYSICAL EXAMINATION: His chest is clear. Cardiac exam is normal. The abdomen is soft and incision looks good. IMPRESSION: Status post perforated gastric ulcer and subtotal gastrectomy. PLAN: Probably home today. MMODL / IJN: [id number] /
--- NOTE | 2019-05-17 08:17 | CDI ---
Documentation Clarification Form Date: 05/17/19 From: Deborah Valderrama Phone: If you have a question regarding this query, please contact Iliana Romero at [phone] between 8am and 5pm. Admit Date: 05/08/2019 9:08:00 AM Patient Name: Jaylen Cisse Visit Number: [id number] Discharge Date: 05/14/2019 2:42:00 PM ATTENTION: The Clinical Documentation Specialists (CDI) and [facility] Coding Staff appreciate your assistance in clarifying documentation. Please respond to the clarification below the line at the bottom and electronically sign. The CDI & [facility] Coding staff will review the response and follow-up if needed. Please note: Queries are made part of the Legal Health Record. If you have any questions, please contact the author of this message via ITS. Dr. Geovanna Donovan The patient presented with perforated gastric ulcer. Peritonitis was documented in the H&P. Documentation in the physical exam in the discharge summary stated no peritonitis. History/Risk Factors: Gastric ulcer, incisional hernia Clinical Indicators: Abdominal pain, pneumoperitoneum Lab findings: WBC 9.6, neutrophils 91% Radiology findings: KUB: Free abdominal air raising concern for rupture viscus. Abd CT: Free intraperitoneal air. I do not see a dfinite site of perforation. Vital Signs: T> 97.5, P. 83, R. 18, BP 124/77 Treatment: IV Levofloxacin, IV Metronidazole In your professional opinion, can you please clarify if the peritonitis was? Ruled In Ruled Out Other, please specify Unable to determine PLEASE DIFFER TO DR. GERARD [place] [id number] 05/17/2019 VINCENT
--- NOTE | 2019-05-18 12:51 | CDI ---
Documentation Clarification Form Date: 05/17/2019 8:18:00 AM From: Deborah Valderrama Phone: If you have a question regarding this query, please contact Iliana Romero at [phone] between 8am and 5pm. Admit Date: 05/08/2019 9:08:00 AM Patient Name: Jaylen Cisse Visit Number: [id number] Discharge Date: 05/14/2019 2:42:00 PM ATTENTION: The Clinical Documentation Specialists (CDI) and [facility] Coding Staff appreciate your assistance in clarifying documentation. Please respond to the clarification below the line at the bottom and electronically sign. The CDI & [facility] Coding staff will review the response and follow-up if needed. Please note: Queries are made part of the Legal Health Record. If you have any questions, please contact the author of this message via ITS. Dr. Rico Anguiano The patient presented with perforated gastric ulcer. Peritonitis was documented in the H&P. Documentation in the physical exam in the discharge summary stated no peritonitis. History/Risk Factors: Gastric ulcer, incisional hernia Clinical Indicators: Abdominal pain, pneumoperitoneum Lab findings: WBC 9.6, neutrophils 91% Radiology findings: KUB: Free abdominal air raising concern for rupture viscus. Abd CT: Free intraperitoneal air. I do not see a dfinite site of perforation. Vital Signs: T> 97.5, P. 83, R. 18, BP 124/77 Treatment: IV Levofloxacin, IV Metronidazole In your professional opinion, can you please clarify if the peritonitis was? Ruled In Ruled Out Other, please specify Unable to determine Patient presented with peritonitis which was confirmed at the time of operation. MTDD
--- NOTE | 2019-05-26 07:16 | CDI ---
Documentation Clarification Form Date: 05/26/19 From: Deborah Valderrama Phone: If you have a question regarding this query, please contact Iliana Romero at [phone] between 8am and 5pm. Admit Date: 05/08/2019 9:08:00 AM Patient Name: Jaylen Cisse Visit Number: [id number] Discharge Date: 05/14/2019 2:42:00 PM ATTENTION: The Clinical Documentation Specialists (CDI) and [facility] Coding Staff appreciate your assistance in clarifying documentation. Please respond to the clarification below the line at the bottom and electronically sign. The CDI & [facility] Coding staff will review the response and follow-up if needed. Please note: Queries are made part of the Legal Health Record. If you have any questions, please contact the author of this message via ITS. Dr. Rico Anguiano Conflicting documentation has been found in the medical record: The query regarding peritonitis was answered by both you and the nurse practitioner. The nurse practitioner documented that the patient did not have peritonitis in an addendum to a progress note on the same day that you documented that the patient did have peritonitis on the query form. The patient presented with perforated gastric ulcer. Peritonitis was documented in the H&P. Documentation in the physical exam in the discharge summary stated no peritonitis. History/Risk Factors: Gastric ulcer, incisional hernia. Clinical Indicators: Abdominal pain, pneumoperitoneum Lab findings: WBC 9.6, neutrophils 91% Radiology findings: KUB - free abdominal air raising concern for rupture viscus. Abd CT: Free intraperitoneal air. I do not see a definite site of perforation. Vital signs: T. 97.5, P. 83, R. 18, BP 124/77 Treatment: IV Levofloxacin, IV Metronidazole In your professional opinion, can you clarify if the peritonitis was? Ruled In Ruled Out Other explanation of clinical findings Unable to determine (no explanation for clinical findings) thought i already answered this. yes peritonitis identified at time of exploration MTDD
== END 2019-05-14 14:42 | disposition home or self-care (01) | DRG 326 ==
LOC: EC 03:54 → 4SSUR 09:08
PROVIDERS: ADMIT Surgery; ATTEND Surgery
PROC: 0WQF0ZZ Repair Abdominal Wall, Open Approach (ICD-10-PCS; 2019-05-08)
PROC: 0DTJ0ZZ Resection of Appendix, Open Approach (ICD-10-PCS; 2019-05-08)
PROC: 0DB60ZZ Excision of Stomach, Open Approach (ICD-10-PCS; principal; 2019-05-08 10:30)
DX: K25.5 Chronic or unspecified gastric ulcer with perforation (principal); K65.9 Peritonitis, unspecified; J44.1 Chronic obstructive pulmonary disease with (acute) exacerbation; J90 Pleural effusion, not elsewhere classified; J98.11 Atelectasis; E78.5 Hyperlipidemia, unspecified; I10 Essential (primary) hypertension; K43.2 Incisional hernia without obstruction or gangrene; R21 Rash and other nonspecific skin eruption; Z79.899 Other long term (current) drug therapy; Z87.891 Personal history of nicotine dependence; Z88.1 Allergy status to other antibiotic agents; Z88.5 Allergy status to narcotic agent; Z88.0 Allergy status to penicillin
CPT/HCPCS: 36415; 71046; 74018; 74177; 80048; 80053; 81001; 82150; 83605; 83690; 85025; 87040; 88302; 88307; 88342; 94640; 94760; 96365; 96367; 96375; 96376; 99285

== ENCOUNTER 2019-06-28 10:56 | Observation (INO) | payer BC ==
[2019-06-28 11:15] LABS: Glucose,Whole Blood 105 mg/dL (75-99)
[2019-06-28] MEDS ORDERED: SODIUM CHLORIDE 0.9% 500 ML 500 ML IV STA (11:22)
--- NOTE | 2019-06-28 11:35 | ED ---
General Adult HPI - General Chief complaint: Neuro Symptoms/Deficit Stated complaint: Weakness Time Seen by Provider: 06/28/19 11:10 Source: patient, RN notes reviewed, old records reviewed Mode of arrival: ambulatory Limitations: no limitations - History of Present Illness Initial comments: This is a 64-year-old male with a past medical history significant for smoking which she quit 10 years ago. Patient also has high cholesterol and high blood pressure. Patient states at 3:30 this morning he was having some facial droop on the left side of his face and slurred speech he states he also is having left arm weakness and an states he was dropping things from his left hand which continues currently. Patient states his left hand still feels weak and he stopped quite as coordinated as he normally is. Patient denies any chest pain palpitations difficulty breathing shortness of breath. Patient denies any abdominal pain patient has nausea vomiting diarrhea. Patient denies any headache patient denies lightheadedness or dizziness. - Related Data Home Medications Medication Instructions Recorded Confirmed Albuterol Inhaler [Ventolin Hfa 2 puff INHALATION RT-Q6H PRN 07/16/16 06/28/19 Inhaler] Loratadine [Claritin] 10 mg PO HS 07/16/16 06/28/19 Ascorbic Acid [Vitamin C] 500 mg PO HS 05/08/19 06/28/19 Cholecalciferol [Vitamin D3 (25 1,000 unit PO HS 05/08/19 06/28/19 Mcg = 1000 Iu)] Ferrous Sulfate [Feosol] 325 mg PO HS 05/08/19 06/28/19 Glucosamine Sulfate 500 mg PO HS 05/08/19 06/28/19 Omeprazole 20 mg PO 05/08/19 06/28/19 Potassium 99 mg PO HS 05/08/19 06/28/19 Simvastatin [Zocor] 10 mg PO HS 05/08/19 06/28/19 Turmeric Root Extract [Turmeric] 500 mg PO HS 05/08/19 06/28/19 Ipratropium-Albuterol Nebulize 3 ml INHALATION RT-QID 06/28/19 06/28/19 [Duoneb 0.5 mg-3 mg/3 ml Soln] Msm 1,500 mg PO HS 06/28/19 06/28/19 Multivit-Min/FA/Lycopen/Lutein 1 tab PO 06/28/19 06/28/19 [Centrum Silver Men Tablet] Allergies Allergy/AdvReac Type Severity Reaction Status Date / Time Cephalosporins Allergy Rash/Hives Verified 06/28/19 11:34 hydrocodone [From [place]] Allergy Rash/Hives Verified 06/28/19 11:34 piperacillin [From Zosyn] Allergy Rash/Hives Verified 06/28/19 11:34 tazobactam [From Zosyn] Allergy Rash/Hives Verified 06/28/19 11:34 fluticasone AdvReac Wheezing Verified 06/28/19 11:34 [From Advair Diskus] salmeterol AdvReac Wheezing Verified 06/28/19 11:34 [From Advair Diskus] Review of Systems ROS Statement: Those systems with pertinent positive or pertinent negative responses have been documented in the HPI. ROS Other: All systems not noted in ROS Statement are negative. Past Medical History Past Medical History: COPD, Hyperlipidemia, Hypertension History of Any Multi-Drug Resistant Organisms: None Reported Past Surgical History: No Surgical Hx Reported Additional Past Surgical History / Comment(s): orthoscopic surgery of right shoulder, laperotomy Past Anesthesia/Blood Transfusion Reactions: No Reported Reaction Past Psychological History: No Psychological Hx Reported Smoking Status: Former smoker Past Alcohol Use History: None Reported Past Drug Use History: None Reported - Past Family History Father History Unknown: Yes General Exam - General Exam Comments Initial Comments: GENERAL: Patient is well-developed and well-nourished. Patient is nontoxic and well- hydrated and is in no acute distress. ENT: Neck is soft and supple. No significant lymphadenopathy is noted. Oropharynx is clear. Moist mucous membranes. Neck has full range of motion without eliciting any pain. EYES: The sclera were anicteric and conjunctiva were pink and moist. Extraocular movements were intact and pupils were equal round and reactive to light. Eyelids were unremarkable. PULMONARY: Unlabored respirations. Good breath sounds bilaterally. No audible rales rhonchi or wheezing was noted. CARDIOVASCULAR: There is a regular rate and rhythm without any murmurs gallops or rubs. ABDOMEN: Soft and nontender with normal bowel sounds. No palpable organomegaly was noted. There is no palpable pulsatile mass. SKIN: Skin is clear with no lesions or rashes and otherwise unremarkable. NEUROLOGIC: Patient is alert and oriented x3. Cranial nerves II through XII are grossly intact. Motor and sensory are also intact. Normal speech, volume and content. Symmetrical smile. Cerebellar testing is normal finger to nose. Patient states that he feels weaker on the left hand and his correlation is soft but I cannot appreciate on physical exam. Patient had no problems with speech or facial droop like he did earlier and he agreed that that had resolved. MUSCULOSKELETAL: Normal extremities with adequate strength and full range of motion. No lower extremity swelling or edema. No calf tenderness. LYMPHATICS: No significant lymphadenopathy is noted PSYCHIATRIC: Normal psychiatric evaluation. Limitations: no limitations Course Vital Signs 06/28/19 06/28/19 06/28/19 11:02 11:10 11:26 Temperature 97.8 F Pulse Rate 89 88 87 Respiratory 18 16 16 Rate Blood Pressure 145/80 151/83 124/75 O2 Sat by Pulse 96 98 99 Oximetry 06/28/19 06/28/19 06/28/19 11:36 11:46 11:51 Temperature Pulse Rate 88 83 85 Respiratory 16 16 19 Rate Blood Pressure 128/76 125/70 127/69 O2 Sat by Pulse 100 100 96 Oximetry 06/28/19 06/28/19 06/28/19 12:00 12:20 12:30 Temperature Pulse Rate 83 84 Respiratory 16 17 Rate Blood Pressure 127/69 133/84 139/77 O2 Sat by Pulse 98 97 Oximetry 06/28/19 06/28/19 12:50 13:00 Temperature Pulse Rate 75 76 Respiratory 16 20 Rate Blood Pressure 122/75 123/79 O2 Sat by Pulse 97 97 Oximetry Medical Decision Making - Medical Decision Making EKG shows normal sinus rhythm at 83 bpm GA interval 178 QRSs 92 QT interval 370 QTC C is 441. Patient's EKG shows no ST segment elevation or depression or T wave abnormalities are noted. The patient arrived and I was done evaluating I called a code stroke I spoke with Dr. Potts he agreed with going ahead and get the CT angiogram of the head and neck. I spoke with Dr. Potts again when this can was done and made him aware of the results and he wanted the patient be put on aspirin and Plavix and admitted to the hospital have a neurologist him and have the neurologist ordered an MRI. I spoke with Dr. Arredondo and he agreed to admit the patient admitted patient consult the neurology and I continued aspirin and Plavix on the floor. - Lab Data Result diagrams: 06/28/19 11:17 06/28/19 11:24 Lab Results 06/28/19 06/28/19 06/28/19 Range/Units 11:13 11:17 11:17 WBC 6.9 (3.8-10.6) k/uL RBC 4.87 (4.30-5.90) m/uL Hgb 15.4 (13.0-17.5) gm/dL Hct 46.0 (39.0-53.0) % MCV 94.5 (80.0-100.0) fL MCH 31.6 (25.0-35.0) pg MCHC 33.5 (31.0-37.0) g/dL RDW 14.4 (11.5-15.5) % Plt Count 160 (150-450) k/uL Neutrophils % 67 % Lymphocytes % 21 % Monocytes % 6 % Eosinophils % 3 % Basophils % 1 % Neutrophils # 4.6 (1.3-7.7) k/uL Lymphocytes # 1.4 (1.0-4.8) k/uL Monocytes # 0.4 (0-1.0) k/uL Eosinophils # 0.2 (0-0.7) k/uL Basophils # 0.1 (0-0.2) k/uL PT 9.9 (9.0-12.0) sec INR 0.9 (<1.2) APTT 25.0 (22.0-30.0) sec Sodium (137-145) mmol/L Potassium (3.5-5.1) mmol/L Chloride (98-107) mmol/L Carbon Dioxide (22-30) mmol/L Anion Gap mmol/L BUN (9-20) mg/dL Creatinine (0.66-1.25) mg/dL Est GFR (CKD-EPI)AfAm (>60 ml/min/1.73 sqM) Est GFR (CKD-EPI)NonAf (>60 ml/min/1.73 sqM) Glucose (74-99) mg/dL POC Glucose (mg/dL) 105 H (75-99) mg/dL POC Glu Document Processor ID William Cam Calcium (8.4-10.2) mg/dL Total Bilirubin (0.2-1.3) mg/dL AST (17-59) U/L ALT (21-72) U/L Alkaline Phosphatase (38-126) U/L Troponin I (0.000-0.034) ng/mL Total Protein (6.3-8.2) g/dL Albumin (3.5-5.0) g/dL 06/28/19 06/28/19 Range/Units 11:24 11:24 WBC (3.8-10.6) k/uL RBC (4.30-5.90) m/uL Hgb (13.0-17.5) gm/dL Hct (39.0-53.0) % MCV (80.0-100.0) fL MCH (25.0-35.0) pg MCHC (31.0-37.0) g/dL RDW (11.5-15.5) % Plt Count (150-450) k/uL Neutrophils % % Lymphocytes % % Monocytes % % Eosinophils % % Basophils % % Neutrophils # (1.3-7.7) k/uL Lymphocytes # (1.0-4.8) k/uL Monocytes # (0-1.0) k/uL Eosinophils # (0-0.7) k/uL Basophils # (0-0.2) k/uL PT (9.0-12.0) sec INR (<1.2) APTT (22.0-30.0) sec Sodium 142 (137-145) mmol/L Potassium 4.2 (3.5-5.1) mmol/L Chloride 110 H (98-107) mmol/L Carbon Dioxide 22 (22-30) mmol/L Anion Gap 10 mmol/L BUN 18 (9-20) mg/dL Creatinine 1.00 (0.66-1.25) mg/dL Est GFR (CKD-EPI)AfAm >90 (>60 ml/min/1.73 sqM) Est GFR (CKD-EPI)NonAf 80 (>60 ml/min/1.73 sqM) Glucose 112 H (74-99) mg/dL POC Glucose (mg/dL) (75-99) mg/dL POC Glu Document Processor ID Calcium 9.4 (8.4-10.2) mg/dL Total Bilirubin 0.7 (0.2-1.3) mg/dL AST 40 (17-59) U/L ALT 50 (21-72) U/L Alkaline Phosphatase 58 (38-126) U/L Troponin I <0.012 (0.000-0.034) ng/mL Total Protein 7.1 (6.3-8.2) g/dL Albumin 4.3 (3.5-5.0) g/dL Critical Care Time Critical Care Time: Yes Total Critical Care Time: 35 Disposition Clinical Impression: Transient cerebral ischemia, Vertebral artery occlusion Disposition: ADMITTED IP TO THIS HOSP Referrals: Natahn Louise MD [Primary Care Provider] - 1-2 days Time of Disposition: 13:13
[2019-06-28 11:50] LABS: Basophils # (A) 0.1 k/uL (0-0.2); Basophils % (A) 1 %; Eosinophils # (A) 0.2 k/uL (0-0.7); Eosinophils % (A) 3 %; HGB 15.4 gm/dL (13.0-17.5); Lymphocytes # (A) 1.4 k/uL (1.0-4.8); Lymphocytes % (A) 21 %; MCH 31.6 pg (25.0-35.0); MCHC 33.5 g/dL (31.0-37.0); MCV 94.5 fL (80.0-100.0); Mean Platelet Volume 6.2; Monocytes # (A) 0.4 k/uL (0-1.0); Monocytes % (A) 6 %; Neutrophils # (A) 4.6 k/uL (1.3-7.7); Neutrophils % (A) 67 %; Platelet Count 160 k/uL (150-450); RBC 4.87 m/uL (4.30-5.90); RDW 14.4 % (11.5-15.5); WBC 6.9 k/uL (3.8-10.6)
[2019-06-28 11:55] LABS: INR 0.9 (<1.2); Prothrombin Time 9.9 sec (9.0-12.0)
[2019-06-28 11:55] LABS: ALT 50 U/L (21-72); AST 40 U/L (17-59); African American GFR (CKD) >90 (>60 ml/min/1.73 sqM); Albumin 4.3 g/dL (3.5-5.0); Alkaline Phosphatase 58 U/L (38-126); Anion Gap 10 mmol/L; Blood Urea Nitrogen 18 mg/dL (9-20); Calcium 9.4 mg/dL (8.4-10.2); Carbon Dioxide 22 mmol/L (22-30); Chloride 110 mmol/L (98-107); Glucose 112 mg/dL (74-99); Potassium 4.2 mmol/L (3.5-5.1); Sodium 142 mmol/L (137-145); Total Bilirubin 0.7 mg/dL (0.2-1.3); Total Protein 7.1 g/dL (6.3-8.2)
--- NOTE | 2019-06-28 11:55 | CT ---
EXAMINATION TYPE: CT brain wo con for TPA DATE OF EXAM: 06/28/2019 COMPARISON: None HISTORY: neurological deficits CT DLP: unavailable mGycm Automated exposure control for dose reduction was used. TECHNIQUE: CT scan of the head is performed without contrast. FINDINGS: There is no acute intracranial hemorrhage or midline shift identified. There is diffuse v entricular and sulcal prominence consistent with diffuse age-related cerebral atrophy. There few are as of low-attenuation in the periventricular white matter consistent and within the right internal ca psule in the anterior limb. The globes are intact. Postoperative changes of the paranasal sinuses ar e questioned. Misty bullosa of the right nasal turbinate mucosal hypertrophy. Mild mucosal thickenin g of the ethmoid sinuses. Remaining paranasal sinuses and mastoid air cells are well aerated. Atheros clerosis is seen of the intracranial vasculature. IMPRESSION: 1. No acute intracranial hemorrhage or midline shift. 2. Diffuse age-related cerebral atrophy and few hypoattenuated regions in the periventricular white m atter and anterior limb of the right internal capsule, most commonly on the basis of chronic adenopat hy.
--- NOTE | 2019-06-28 12:19 | XR ---
EXAMINATION TYPE: XR chest 2V DATE OF EXAM: 06/28/2019 COMPARISON: 05/11/2019 HISTORY: Altered mental status TECHNIQUE: Frontal and lateral views of the chest are obtained. FINDINGS: There is no focal air space opacity, pleural effusion, or pneumothorax seen. The cardiac silhouette size is within normal limits. The osseous structures are intact. There is diffuse osseou s demineralization and mild multilevel degenerative changes of the spine. Increased retrosternal airs pace indicative of underlying COPD. IMPRESSION: Chronic changes with no acute cardiopulmonary process.
--- NOTE | 2019-06-28 12:26 | CT ---
EXAMINATION TYPE: CT angio head neck DATE OF EXAM: 06/28/2019 HISTORY: Neurologic deficit. Altered mental status. COMPARISON: CT brain of the same date CT DLP: 474 mGycm. Automated Exposure Control for Dose Reduction was Utilized. TECHNIQUE: CTA scan of the neck is performed with IV Contrast, patient injected with 65 mL of Isovue 370, axial images are obtained, coronal and sagittal reformatted images are reviewed. Three-D recons tructed images are created on an independent workstation and reviewed. FINDINGS: Carotid/Vascular Structures: Incidental note of a bovine aortic arch. The common carotid arteries are patent with only scant amount of calcific atheromatous plaquing of the distal left common carotid ar rhonda near the carotid bulb. No hemodynamically significant stenosis is seen within the cervical porti ons of the internal carotid arteries or carotid bulbs. The right vertebral artery is dominant. The vertebral artery gives off diminutive branches posteriorl y within the cerebellum but does not indent to the right vertebral artery to form the basilar artery. Focal occlusion is seen distally at the level of the foramen magnum. Moderate atherosclerosis of the cavernous and supraclinoid portions of the internal carotid arteries. And M2 segments appear patent. Small patent anterior communicating artery is seen. The posterior comm uting arteries are not definitely identified. Posterior cerebral arteries are patent unremarkable. Other: Visualized portions of the brain CT brain dictation of the. Right maxillary 1.0 cm mucosal ret ention cyst is incidentally noted. Moderate centrilobular emphysematous changes in the visualized monserrat g apices. Mild multilevel degenerative change of the cervical spine. IMPRESSION: 1. Short segment distal occlusion of the left vertebral artery with opacification of the basilar glenna ry from the dominant right vertebral artery. 2. Remaining intracranial vasculature and major arterial vasculature of the neck are patent without h emodynamically significant stenosis or aneurysmal outpouching. 3. [place] appears incomplete with nonvisualization of the posterior commuting arteries.
[2019-06-28] MEDS ORDERED: CLOPIDOGREL 75 MG TAB PO STA (13:26)
[2019-06-28] MEDS ORDERED: ASPIRIN 325 MG TAB PO STA (13:26)
--- NOTE | 2019-06-28 15:37 | P.CNNES ---
History of Present Illness Consult date: 06/28/19 Requesting physician: Joao Ashley Reason for Consult: TIA History of Present Illness: Patient is a 64-year-old right-handed male with history of hypertension, hyperlipidemia, X tobacco use, states that he was walking while at work at 3:30 AM last night, when he felt his left side of the of the face was "hanging". He tried to speak, and the words came out gibberish. Right after that, he noticed his left arm felt funny and he lost dexterity of the left hand. He sat down and slowly symptoms and improved. Overall this episode lasted for about 30-45 minutes. Most symptoms have resolved, although he still feels that the left hand is not as strong, as he still has problems with snapping shirt with the left hand. Patient denied any problem with symptoms in the legs, or gait with this episode. He never had such episode in the past. Patient denies headache, diplopia, loss of vision or dysphagia. Patient drove back home, spoke to his . They went to see his primary physician this morning, who recommended him to come to the hospital. He arrived at 10:56 AM. Patient underwent computed tomography scan of the head, which revealed no acute process. Diffuse age- related cerebral atrophy and few hypoattenuated regions in the periventricular white matter and anterior limb of the right internal capsule, most commonly on the basis of chronic vasculopathy. CTA of head and neck showed sort segment di stal occlusion of the left vertebral artery with opacification of the basilar artery from that dominant right vertebral artery. Remaining intracranial vasculature and major arterial vasculature of the neck are patent without hemodynamically significant stenosis or aneurysmal outpouching. [place] appears incomplete with nonvisualization of the posterior communicating arteries. EKG showed normal sinus rhythm, chest x-ray shows chronic changes with no acute process. ED staff spoke to the stroke neurologist Dr. Potts, who recommended no intervention, and recommended aspirin, Plavix and admission to the hospital with neurology consultation and an MRI. Patient has history of hypertension, hyperlipidemia, COPD. Denies diabetes. Patient has smoked for 48 years, quit at age 63. Patient states she started smoking at age 15 and by 19 he went up to 1 pack per day. By the time he quit, he was smoking 2-3 packs per day. Denies any alcohol or drugs. Patient also mentions that he has history of laparotomy on 07/17/2060 and no cause was found for free air in the abdomen. Patient states that he has similar problem 6 weeks ago and he underwent another laparotomy on 05/13/2019 and was found to have perforated peptic ulcer. The ulcer was removed. He also had removal of append ix and repaired 2 hernias. Patient states that since the surgery he has not been taking his blood pressure medication and lately it has been elevated. In the last 3 days closed running around 150/80. Review of Systems Completely unremarkable at this time except for some numbness and decreased dexterity of the left hand. Denies headache, problem with vision, speech sw allow, chest pain shortness of breath wheezing or cough. All other review of systems unremarkable. Past Medical History Past Medical History: COPD, GERD/Reflux, Hyperlipidemia, Hypertension, Pneumonia Additional Past Medical History / Comment(s): 04/2019 perforated gastric ulcer/pneumoperitoneum/peritonitis, past previous pneumoperitoneum with surgery- no source found, hiatal hernia, occasional back bilateral knee and bilateral foot pain. History of Any Multi-Drug Resistant Organisms: None Reported Past Surgical History: No Surgical Hx Reported, Hernia Repair Additional Past Surgical History / Comment(s): 04/2019 exploratory laparotomy/partial gastrectomy/2 hernia repairs and appendectomy, previous laparoscopy then exploratory laparotomy, EGD, colonoscopy, R shoulder surgery for rotator cuff tears/spurs. Past Anesthesia/Blood Transfusion Reactions: No Reported Reaction Smoking Status: Former smoker - Past Family History Father History Unknown: Yes Family Medical History: Unable to Obtain Additional Family Medical History / Comment(s): Pt was adopted. Mother History Unknown: Yes Family Medical History: Unable to Obtain Additional Family Medical History / Comment(s): Pt was adopted. Medications and Allergies Home Medications Medication Instructions Recorded Confirmed Type Albuterol Inhaler [Ventolin Hfa 2 puff INHALATION RT-Q6H PRN 07/16/16 06/28/19 History Inhaler] Loratadine [Claritin] 10 mg PO HS 07/16/16 06/28/19 History Ascorbic Acid [Vitamin C] 500 mg PO HS 05/08/19 06/28/19 History Cholecalciferol [Vitamin D3 (25 1,000 unit PO HS 05/08/19 06/28/19 History Mcg = 1000 Iu)] Ferrous Sulfate [Feosol] 325 mg PO HS 05/08/19 06/28/19 History Glucosamine Sulfate 500 mg PO HS 05/08/19 06/28/19 History Omeprazole 20 mg PO HS 05/08/19 06/28/19 History Potassium 99 mg PO HS 05/08/19 06/28/19 History Simvastatin [Zocor] 10 mg PO HS 05/08/19 06/28/19 History Turmeric Root Extract [Turmeric] 500 mg PO HS 05/08/19 06/28/19 History Ipratropium-Albuterol Nebulize 3 ml INHALATION RT-QID 06/28/19 06/28/19 History [Duoneb 0.5 mg-3 mg/3 ml Soln] Msm 1,500 mg PO HS 06/28/19 06/28/19 History Multivit-Min/FA/Lycopen/Lutein 1 tab PO HS 06/28/19 06/28/19 History [Centrum Silver Men Tablet] Allergies Allergy/AdvReac Type Severity Reaction Status Date / Time Cephalosporins Allergy Rash/Hives Verified 06/28/19 11:34 hydrocodone [From [place]] Allergy Rash/Hives Verified 06/28/19 11:34 piperacillin [From Zosyn] Allergy Rash/Hives Verified 06/28/19 11:34 tazobactam [From Zosyn] Allergy Rash/Hives Verified 06/28/19 11:34 fluticasone AdvReac Wheezing Verified 06/28/19 11:34 [From Advair Diskus] salmeterol AdvReac Wheezing Verified 06/28/19 11:34 [From Advair Diskus] Physical Examination - Vital Signs Vital Signs: Vital Signs Temp Pulse Pulse Resp BP BP Pulse Ox 06/28/19 14:41 97.3 F L 83 18 136/75 97 06/28/19 13:00 76 20 123/79 97 06/28/19 12:50 75 16 122/75 97 06/28/19 12:30 84 17 139/77 97 06/28/19 12:20 83 16 133/84 98 06/28/19 12:00 127/69 06/28/19 11:51 85 19 127/69 96 06/28/19 11:46 83 16 125/70 100 06/28/19 11:36 88 16 128/76 100 06/28/19 11:26 87 16 124/75 99 06/28/19 11:10 88 16 151/83 98 06/28/19 11:02 97.8 F 89 18 145/80 96 Intake and Output 06/28/19 06/28/19 06/28/19 06:59 14:59 22:59 Output Total 300 Balance -300 Output: Urine 300 Other: # Voids 1 Weight 73.028 kg On examination patient is a late middle aged male, in no distress. He is alert and awake, fully oriented to time place and person. No obvious bruit or murmur. Speech and language functions are normal. Attention and concentration fund of knowledge is adequate. On cranial nerve examination pupils are round and reactive to light, visual luna are full, extraocular muscles are intact. Face is symmetric and tongue protrudes the midline. Palatal elevation and sensation normal. On muscle strength testing there is no pronator drift and the strength is normal in arms and legs distally and proximally. Reflexes are slightly brisker in the left upper limb 3, whereas 2+ in the right upper limb. The reflexes are equal in the lower limbs and plantars are downgoing. Sensory touch is slightly decreased in the left hand as compared to the right. No ataxia for [id number] testing on either side. Patient has slight decreased dexterity of the left hand. Tone and bulk of muscles normal. Results - Laboratory Findings CBC and BMP: 06/28/19 11:17 06/28/19 11:24 Abnormal Lab Findings: Abnormal Labs 06/28/19 06/28/19 11:13 11:24 Chloride 110 H Glucose 112 H POC Glucose (mg/dL) 105 H Assessment and Plan Assessment: * Probable TIA manifesting with left facial brachial weakness and slurred speech, that mostly resolved in 30-45 minutes, however he has slight persistent decreased dexterity of the left hand. Rule out CVA. * Hypertension * Hyperlipidemia * COPD * X tobacco use * Recent history of partial gastrectomy for perforated ulcer of posterior wall stomach on 05/13/2019. Plan: * Patient has possible TIA versus CVA. Patient has been started on aspirin and Plavix. Patient recently had history of partial gastrectomy on 05/13/2019 for perforated peptic ulcer. I would suggest clearance to initiate antiplatelet agent from recent surgery standpoint. Patient was not taking any antiplatelet agent before, therefore monotherapy with aspirin or Plavix should be fine. * We will check MRI of the brain to rule out CVA. * We will check 2-D echo with bubble study to rule out PFO. * We will also check fasting lipid panel, hemoglobin A1c
--- NOTE | 2019-06-28 18:41 | HP ---
HISTORY AND PHYSICAL CHIEF COMPLAINT: Left-sided facial weakness, dysesthesias on the left hand and dysarthria. HISTORY OF PRESENT ILLNESS: This is another admission for this 64-year-old white male. He was just in the hospital recently for upper gastrointestinal hemorrhage. He was operated on and went home and was doing well. He was at work last night when he suddenly developed some weakness on the left side of the face and dysesthesias in the left hand and he was having a little trouble talking. He kept working, went home, and the speech began to clear. He got up in the morning and came to the office, where he did have some minimal left-sided weakness and very minimal weakness in the left upper extremity. He had no headache, change in vision or hearing, problems with the left leg, palpitations, syncope, etc. REVIEW OF SYSTEMS: Review of systems is otherwise unremarkable. He has had no recent head injuries and he has never had prior TIA or cardiovascular problems. He used to smoke heavily but quit several years ago. ALLERGIES: 1. PENICILLIN. 2. CEPHALOSPORINS. 3. VICODIN. 4. ADVAIR. MEDICATIONS: He uses DuoNeb updraft q.i.d. p.r.n., simvastatin 10 mg once a day, loratadine 10 mg once a day. FAMILY HISTORY: He has an unremarkable family history. He was adopted. PHYSICAL EXAMINATION: Blood pressure is 142/78, pulse of 88, respirations of 18. He is afebrile. In general he appeared to be slender, well developed, well nourished, in no acute distress. Skin color is normal. Skin is warm and dry. Lymph nodes are not enlarged. Head, ears, eyes, nose, mouth and throat are normal. Carotids are normal. Neck veins are not distended. Chest is clear to auscultation. Cardiac exam demonstrates normal sinus rhythm and no murmurs or extra sounds. The abdomen is flat, soft and nontender without any visceromegaly or masses. Bowel sounds are present. Extremities are normal. Neurologically he has very slight central facial weakness. Pupils are equal, round and reactive and gaze is conjugate. He had no dysesthesias in the face. Carotids are normal. There are no bruits. He has slightly detectable weakness in the left upper extremity, particularly on extension of the elbow. Remainder of his neurologic exam is normal. ADMITTING DIAGNOSES: 1. Transient ischemic attack. 2. History of chronic obstructive pulmonary disease. PLAN: 1. Bed rest. 2. IV fluids. 3. Carotid duplex imaging. 4. CT angiogram of the brain. 5. Neurology consult. 6. Anticoagulate. JIMMY / DESEAN: [id number] /
[2019-06-28] MEDS: IPRATROPIUM-ALBUTEROL 3 ML NEB INHALATION SCH (19:18)
[2019-06-28] MEDS ORDERED: PANTOPRAZOLE 40 MG TABLET PO SCH (21:00)
[2019-06-28] MEDS ORDERED: ATORVASTATIN 80 MG TAB PO SCH (21:00)
[2019-06-28 23:17] LABS: Cholesterol 182 mg/dL (<200); HDL Cholesterol 54 mg/dL (40-60); LDL Cholesterol,Calculated 75 mg/dL (0-99); Triglycerides 265 mg/dL (<150)
[2019-06-29 05:18] VITALS: RESP 16
[2019-06-29] MEDS: IPRATROPIUM-ALBUTEROL 3 ML NEB INHALATION SCH ×3 (07:22→16:01)
[2019-06-29] MEDS ORDERED: ASPIRIN 81 MG PO SCH (09:00)
[2019-06-29] MEDS ORDERED: ASPIRIN 325 MG TAB PO SCH (09:00)
[2019-06-29] MEDS ORDERED: CLOPIDOGREL 75 MG TAB PO SCH (09:00)
--- NOTE | 2019-06-29 09:13 | MR ---
EXAMINATION TYPE: MR brain wo con DATE OF EXAM: 06/29/2019 8:06 AM COMPARISON: NONE HISTORY: TIA vs CVA Multiplanar and multispin-echo imaging of the brain was performed . The ventricles, basal cisterns and sulci overlying the cerebral convexities are within normal limits. There is no evidence for midline shift or mass effect. Acute intracranial hemorrhage or extra-axial collection is not evident. The T2 FLAIR data set demonstrates numerous foci of increased signal within both cerebral hemispheres . Total number of lesions is at least 50 bilaterally. Lesions are relatively juxtacortical, subcortic al, deep white matter and periventricular in location. Right temporal lesion is noted. The largest le mariely within the high right frontal lobe measures 8 mm and is of increased signal on diffusion-weighte d imaging. This could reflect an acute plaque of demyelination versus a focus of vascular ischemia. N o additional areas of increased signal noted on diffusion-weighted imaging. The largest lesion within the left frontal lobe measures 6 mm. The paranasal sinuses and mastoid air cells are well-aerated. IMPRESSION: 1. Nonspecific T2 lesions as discussed which may be on the basis of a demyelination. Additional consi derations include that of the vasculopathy, sequela of chronic migraine headaches, remote deep white matter insults and Lyme's disease. As noted there is a focus of increased signal on diffusion-weighte d imaging which could reflect an acute plaque of demyelination versus acute focal vascular insult. Co rrelate clinically.
--- NOTE | 2019-06-29 11:01 | ECHOF ---
Referral Reason:R/O PFO MEASUREMENTS -------- HEIGHT: 177.8 cm WEIGHT: 71.7 kg BP: 141/78 RVIDd: 4.5 cm (< 3.3) IVSd: 1.6 cm (0.6 - 1.1) LVIDd: 3.6 cm (3.9 - 5.3) LVPWd: 1.2 cm (0.6 - 1.1) IVSs: 1.4 cm LVIDs: 2.3 cm LVPWs: 1.8 cm LAESV Index (A-L): 31.41 ml/m Ao Diam: 3.4 cm (2.0 - 3.7) AV Cusp: 2.1 cm (1.5 - 2.6) LA Diam: 3.8 cm (2.7 - 3.8) MV E Compa: 0.88 m/s MV DecT: 242 ms MV A Compa: 1.09 m/s MV E/A Ratio: 0.81 AR PHT: 490 ms RAP: 5.00 mmHg RVSP: 48.94 mmHg FINDINGS -------- Sinus rhythm. This was a technically adequate study. The left ventricular size is normal. There is moderate concentric left ventricular hypertrophy. O verall left ventricular systolic function is normal with, an EF between 60 - 65 %. The diastolic fi lling pattern is normal for the age of the patient 9.01. The right ventricle is moderately enlarged. LA is midly dilated 29-33ml/m2. The right atrium is mildly enlarged. Contrast study was performed with 3 iv injections of 8 ccs of agitated normal saline, at rest, with c ough and post-Valsalva maneuver. Interatrial and interventricular septum intact. The aortic valve was not well visualized. There is mild aortic valve sclerosis. There is mild aor tic regurgitation. There is no evidence of aortic stenosis. Mild mitral annular calcification present. There is trace mitral regurgitation. Imnu-qs-clujqnjv tricuspid regurgitation present. There is moderate pulmonary hypertension. The r ight ventricular systolic pressure, as measured by Doppler, is 48.94mmHg. There is no pulmonic regurgitation present. The aortic root size is normal. IVC Not well visulized. There is no pericardial effusion. CONCLUSIONS -------- 1. Sinus rhythm. 2. This was a technically adequate study. 3. The left ventricular size is normal. 4. There is moderate concentric left ventricular hypertrophy. 5. Overall left ventricular systolic function is normal with, an EF between 60 - 65 %. 6. The diastolic filling pattern is normal for the age of the patient 9.01 7. The right ventricle is moderately enlarged. 8. LA is midly dilated 29-33ml/m2. 9. The right atrium is mildly enlarged. 10. Contrast study was performed with 3 iv injections of 8 ccs of agitated normal saline, at rest, wi th cough and post-Valsalva maneuver. 11. Interatrial and interventricular septum intact. 12. The aortic valve was not well visualized. 13. There is mild aortic valve sclerosis. 14. There is mild aortic regurgitation. 15. There is no evidence of aortic stenosis. 16. Mild mitral annular calcification present. 17. There is trace mitral regurgitation. 18. Jvzw-gz-vbzhctlj tricuspid regurgitation present. 19. There is moderate pulmonary hypertension. 20. The right ventricular systolic pressure, as measured by Doppler, is 48.94mmHg. 21. There is no pulmonic regurgitation present. 22. The aortic root size is normal. 23. IVC Not well visulized. 24. There is no pericardial effusion. MANUFACTURING SHIFT SUPERVISOR: Carla Scales RDCS
--- NOTE | 2019-06-29 11:14 | P.PN ---
Subjective Progress Note Date: 06/29/19 Patient states his symptoms have improved. Left hand is still mildly numb, not 100% back to normal. Patient's MRI of the brain revealed a small area of an acute ischemic stroke involving the right parietal cortex. This is likely embolic. Patient also has small vessel disease. Hemoglobin A1c 5.0, cholesterol is 182, LDL 75, HDL 54 and triglycerides 265. Objective - Vital Signs Vital signs: Vital Signs Temp 97.7 F 06/29/19 07:39 Pulse 85 06/29/19 07:39 Resp 16 06/29/19 07:39 BP 140/71 06/29/19 07:39 Pulse Ox 95 06/29/19 07:39 Intake & Output 06/28/19 06/29/19 06/29/19 18:59 06:59 18:59 Intake Total 210 450 Output Total 300 Balance -90 450 Weight 73.028 kg 72 kg Intake: IV 10 Invasive Line 1 10 Oral 200 450 Output: Urine 300 Other: Voiding Method Toilet Toilet # Voids 1 1 2 - Exam Patient's mental status, speech and language functions are normal. Cranial nerves are normal. Visual luna are full. On muscle strength testing there is no drift and the strength is completely normal in the arms and legs. No ataxia. Sensory touch is decreased in the left hand as compared to the right. - Labs CBC & Chem 7: 06/28/19 11:17 06/28/19 11:24 Labs: Abnormal Lab Results - Last 24 Hours (Table) 06/28/19 06/28/19 06/28/19 Range/Units 11:13 11:24 11:24 Chloride 110 H (98-107) mmol/L Glucose 112 H (74-99) mg/dL POC Glucose (mg/dL) 105 H (75-99) mg/dL Triglycerides 265 H (<150) mg/dL Assessment and Plan Assessment: * Acute ischemic CVA, small size, involving right parietal cortex, likely embolic. * Hypertension * Hyperlipidemia, controlled * COPD * X tobacco use * Recent history of partial gastrectomy for perforated ulcer of posterior wall stomach on 05/13/2019. Plan: * Patient is currently on aspirin 81 mg and Plavix. Patient recently had history of partial gastrectomy on 05/13/2019 for perforated peptic ulcer. I would suggest clearance to initiate antiplatelet agent from recent surgery standpoint. If any concern about dual antiplatelet medication, then monotherapy with aspirin or Plavix should be fine. * MRI of the brain reviewed, confirmed small right parietal cortical ischemic CVA. * 2-D echo with bubble study showed ejection fraction 60-65%. Left atrium is mildly dilated. Agitated saline documented no interatrial or interventricular shunt. * Patient's lipids are controlled and hemoglobin A1c 5.0. * Patient otherwise clear for discharge from neurology point.
[2019-06-29 11:36] VITALS: BP 139/79; TEMP 98
[2019-06-29 16:14] VITALS: PULSE 80
--- NOTE | 2019-06-30 06:53 | DS ---
DISCHARGE SUMMARY CHIEF COMPLAINT: CVA. HISTORY OF PRESENT ILLNESS AND PHYSICAL EXAM: Details of this man's history and physical can be found in the initial workup. LABORATORY STUDIES: While he was in the hospital, he had laboratory studies, details of which can be found in the laboratory section of his chart. COURSE IN THE HOSPITAL: After admission, he was placed on bedrest, started on intravenous fluids and started on aspirin and Plavix. Workup failed to demonstrate any other pathology other than some occlusion of the posterior circulation starting with vertebral and then up toward the ambler of [place]. His symptoms were improving while he was in the hospital and it was felt that he could go home. He will go home on his usual diet, activity and his usual medication program except we will add an antihypertensive (Cozaar of 50 mg) and Plavix 75 mg once a day for 21 days along with aspirin. FINAL DIAGNOSES: 1. Cerebrovascular accident. 2. ASCVD. 3. Hypertension. 4. Chronic obstructive pulmonary disease. OPERATION: None. CONSULTATIONS: Neurology. He is improved. MMODL / IJN: [id number] /
[2019-06-30] MEDS ORDERED: LOSARTAN 50 MG TAB PO SCH (09:00)
== END 2019-06-29 17:25 | disposition home or self-care (01) ==
LOC: EC 10:56 → 3SCARD 13:13
PROVIDERS: ADMIT Family Medicine; ATTEND Family Medicine
DX: I63.9 Cerebral infarction, unspecified (principal); R29.810 Facial weakness; R53.1 Weakness; R47.81 Slurred speech; R20.8 Other disturbances of skin sensation; R20.0 Anesthesia of skin; I65.02 Occlusion and stenosis of left vertebral artery; I10 Essential (primary) hypertension; I25.10 Atherosclerotic heart disease of native coronary artery without angina pectoris; J44.9 Chronic obstructive pulmonary disease, unspecified; E78.5 Hyperlipidemia, unspecified; E78.00 Pure hypercholesterolemia, unspecified; K21.9 Gastro-esophageal reflux disease without esophagitis; T46.5X6A Underdosing of other antihypertensive drugs, initial encounter; Z91.14 Patient's other noncompliance with medication regimen; Z87.891 Personal history of nicotine dependence; Z79.899 Other long term (current) drug therapy; Z90.3 Acquired absence of stomach [part of]; Z90.49 Acquired absence of other specified parts of digestive tract; Z98.890 Other specified postprocedural states; Z87.01 Personal history of pneumonia (recurrent); Z87.19 Personal history of other diseases of the digestive system; Z87.11 Personal history of peptic ulcer disease; Z88.8 Allergy status to other drugs, medicaments and biological substances; Z88.5 Allergy status to narcotic agent; Z88.1 Allergy status to other antibiotic agents
CPT/HCPCS: 96360; 96361; 99291; 36415; 94640 ×3; 94760; 93005; 93306; 97161; 97166; 92523; 80061; 80053; 84484; 85025; 85610; 85730; 83036; 71046; 70496; 70450; 70498; 70551; G0378 ×2; Q9967

== ENCOUNTER 2019-08-24 07:16 | Day surgery (SDC) | payer BC ==
[~2019-08-24 07:16] MED LIST: LACTATED RINGERS 1,000 ML IV SCH; LIDOCAINE 1% 20 ML VIAL (10MG/ML) FOR IV START INTRADERMA PRN
[2019-08-24] MEDS ORDERED: LIDOCAINE 1% INJ 10MG/ML (20 ML MDV) ONE (07:51)
[2019-08-24] MEDS ORDERED: PROPOFOL 10 MG/ML 20 ML VIAL IV ONE (07:51)
--- NOTE | 2019-08-24 07:58 | P.GSHP ---
History of Present Illness H&P Date: 08/24/19 Chief Complaint: Gastric ulcer 64-year-old male here today for upper endoscopy. Patient with perforated gastric ulcer in April. Underwent partial gastrectomy at that time. Postoperative has done well with exception of a recent CVA. Currently on Plavix. Denies abdominal pain. No rectal bleeding or melena. Past Medical History Past Medical History: COPD, CVA/TIA, GERD/Reflux, Hyperlipidemia, Hypertension, Pneumonia Additional Past Medical History / Comment(s): 06/28/19 ADMITTED WITH STROKE SYMPTOMS, NO RESIDUAL. 04/2019 perforated gastric ulcer/pneumoperitoneum/peritonitis, past previous pneumoperitoneum with surgery- no source found, hiatal hernia, occasional back bilateral knee and bilateral foot pain. History of Any Multi-Drug Resistant Organisms: None Reported Past Surgical History: No Surgical Hx Reported, Hernia Repair Additional Past Surgical History / Comment(s): 04/2019 exploratory laparotomy/partial gastrectomy/2 hernia repairs and appendectomy, previous laparoscopy then exploratory laparotomy, EGD, colonoscopy, R shoulder surgery for rotator cuff tears/spurs. Past Anesthesia/Blood Transfusion Reactions: No Reported Reaction Additional Past Anesthesia/Blood Transfusion Reaction / Comment(s): PATIENT IS ADOPTED Past Psychological History: No Psychological Hx Reported Additional Psychological History / Comment(s): Pt resides with his spouse. He is independent. Smoking Status: Former smoker Past Alcohol Use History: None Reported Additional Past Alcohol Use History / Comment(s): Pt started smoking in 1969 and quit in 2010. Past Drug Use History: None Reported - Past Family History Father History Unknown: Yes Family Medical History: Unable to Obtain Additional Family Medical History / Comment(s): Pt was adopted. Mother History Unknown: Yes Family Medical History: Unable to Obtain Additional Family Medical History / Comment(s): Pt was adopted. Medications and Allergies Home Medications Medication Instructions Recorded Confirmed Type Albuterol Inhaler [Ventolin Hfa 2 puff INHALATION RT-Q6H PRN 07/16/16 08/22/19 History Inhaler] Loratadine [Claritin] 10 mg PO HS 07/16/16 08/22/19 History Ascorbic Acid [Vitamin C] 500 mg PO HS 05/08/19 08/22/19 History Cholecalciferol [Vitamin D3 (25 1,000 unit PO HS 05/08/19 08/22/19 History Mcg = 1000 Iu)] Ferrous Sulfate [Iron (65 MG 325 mg PO HS 05/08/19 08/22/19 History Elemental)] Glucosamine Sulfate 500 mg PO HS 05/08/19 08/22/19 History Omeprazole 20 mg PO HS 05/08/19 08/22/19 History Potassium 99 mg PO HS 05/08/19 08/22/19 History Turmeric Root Extract [Turmeric] 500 mg PO HS 05/08/19 08/22/19 History Ipratropium-Albuterol Nebulize 3 ml INHALATION RT-QID 06/28/19 08/22/19 History [Duoneb 0.5 mg-3 mg/3 ml Soln] Msm 1,500 mg PO HS 06/28/19 08/22/19 History Multivit-Min/FA/Lycopen/Lutein 1 tab PO HS 06/28/19 08/22/19 History [Centrum Silver Men Tablet] Atorvastatin [Lipitor] 80 mg PO HS #100 tab 06/29/19 08/22/19 Rx Clopidogrel [Plavix] 75 mg PO DAILY #21 tab 06/29/19 08/22/19 Rx Losartan [Cozaar] 50 mg PO QAM 08/22/19 08/22/19 History Allergies Allergy/AdvReac Type Severity Reaction Status Date / Time Cephalosporins Allergy Rash/Hives Verified 08/22/19 09:48 hydrocodone [From [place]] Allergy Rash/Hives Verified 08/22/19 09:48 piperacillin [From Zosyn] Allergy Rash/Hives Verified 08/22/19 09:48 tazobactam [From Zosyn] Allergy Rash/Hives Verified 08/22/19 09:48 fluticasone AdvReac Wheezing Verified 08/22/19 09:48 [From Advair Diskus] salmeterol AdvReac Wheezing Verified 08/22/19 09:48 [From Advair Diskus] Surgical - Exam Physical exam: General: Well-developed, well-nourished HEENT: Normocephalic, sclerae nonicteric Abdomen: Nontender, nondistended Extremities: No edema Neuro: Alert and oriented Assessment and Plan (1) Perforated gastric ulcer Narrative/Plan: Will proceed with upper endoscopy. Current Visit: No Status: Acute Code(s): K25.5 - CHRONIC OR UNSPECIFIED GASTRIC ULCER WITH PERFORATION SNOMED Code(s): 4183777
--- NOTE | 2019-08-24 08:11 | P.PCN ---
Date of Procedure: 08/24/19 Procedure(s) Performed: Preoperative Dx: History of gastric ulcer Postoperative Dx: Diffuse gastritis Procedure: EGD Anesthesia: Sedation Endoscopist: Dr. Anguiano Specimens: None Endoscopic Procedure: The patient was on the endoscopy table in the left decubitus position. The Olympus gastroscope was inserted into the oropharynx and passed under direct visualization to the region of the third portion of the duodenum. From that point the scope was slowly withdrawn inspecting all surfaces carefully. There were no neoplastic inflammatory or polypoid lesions throughout the duodenum. The pylorus was widely patent. The stomach was carefully inspected. There was evidence of slight deformity posterior wall of the antrum consistent with previous partial gastrectomy. There was no ulceration seen. There was gastritis identified diffusely no biopsies took place because the patient is currently on Plavix. Retroflexion revealed a normal hiatus. The esophagus was then carefully examined. There were no neoplastic inflammatory or polypoid lesions throughout the visualized esophagus. The patient was then taken to the recovery room in stable condition per anesthesia guidelines. Recommendations: Continue antiacid therapy.
[2019-08-24 08:32] VITALS: BP 128/78; PULSE 69; RESP 18
== END 2019-08-24 09:05 | disposition home or self-care (01) ==
LOC: ORWHC2ENDO 07:16
PROVIDERS: ATTEND Surgery
DX: K29.70 Gastritis, unspecified, without bleeding (principal); K21.9 Gastro-esophageal reflux disease without esophagitis; I10 Essential (primary) hypertension; E78.5 Hyperlipidemia, unspecified; J44.9 Chronic obstructive pulmonary disease, unspecified; Z88.0 Allergy status to penicillin; Z88.1 Allergy status to other antibiotic agents; Z88.5 Allergy status to narcotic agent; Z88.8 Allergy status to other drugs, medicaments and biological substances; Z87.891 Personal history of nicotine dependence; Z86.73 Personal history of transient ischemic attack (TIA), and cerebral infarction without residual deficits; Z90.3 Acquired absence of stomach [part of]; Z79.02 Long term (current) use of antithrombotics/antiplatelets; Z79.899 Other long term (current) drug therapy; Z87.19 Personal history of other diseases of the digestive system; Z90.49 Acquired absence of other specified parts of digestive tract; Z98.890 Other specified postprocedural states; Z87.01 Personal history of pneumonia (recurrent); Z87.11 Personal history of peptic ulcer disease
CPT/HCPCS: 43235; J2001; J2704